=== PATIENT | female | born 1955 | race Hispanic/Latino ===

== ENCOUNTER 2017-01-22 07:03 | Inpatient (IN) | payer BC, OTHER ==
[2017-01-22 07:21] VITALS: BMI 34.7
--- NOTE | 2017-01-22 07:23 | ED PDOC ---
Arrival/HPI - General Chief Complaint: GI Problem Time Seen by Provider: 01/22/17 07:09 Historian: Patient, Spouse, Family - History of Present Illness Time/Duration: Other (2 days) Symptom Onset: Gradual Symptom Course: Unchanged Severity Level: Mild Activities at Onset: Rest Associated Symptoms (Text): 01/22/17 07:21 Generalized weakness and fatigue along with myalgias but no arthralgias. Urinary frequency but no urgency dysuria or hematuria. Nausea and vomiting yesterday. No diarrhea. No abdominal pain. No cough congestion dyspnea or URI. No chest pain. No headache dizziness or lightheadedness. Patient's blood sugar was 220 this morning. She did take her insulin. She ate a banana and some Gatorade. No travel or exposure. She had some chills and some sweating, but no fever. Past Medical History - Infectious Disease Hx of Infectious Diseases: None - Tetanus Immunization Tetanus Immunization: Unknown - Reproductive Menopause: Yes - Cardiac Hx Hypertension: Yes - Pulmonary Hx Respiratory Disorders: No - Endocrine/Metabolic Hx Diabetes Mellitus Type 2: Yes - Hematological/Oncological Hx Blood Disorders: No Hx Blood Transfusions: No Hx Blood Transfusion Reaction: No - Integumentary Hx Dermatological Disorder: No - Musculoskeletal/Rheumatological Hx Musculoskeletal Disorders: Yes - Gastrointestinal Hx Gastrointestinal Disorders: No - Psychiatric Hx Emotional Abuse: No Hx Physical Abuse: No Hx Substance Use: No - Surgical History Hx Cholecystectomy: Yes - Anesthesia Hx Anesthesia Reactions: No - Suicidal Assessment Feels Threatened In Home Enviroment: No Family/Social History - Physician Review Nursing Documentation Reviewed: Yes Family/Social History: Unknown Family HX Smoking Status: Never Smoked Hx Alcohol Use: No Hx Substance Use: No Hx Substance Use Treatment: No Allergies/Home Meds Allergies/Adverse Reactions: Allergies shellfish derived Adverse Reaction (Verified 01/22/17 07:20) RASH Home Medications: Home Meds Medication Instructions Recorded Confirmed Glipizide/Metformin Hydrochl 500 tab PO BID 06/08/12 01/22/17 [Glipizide/Metformin Hydrochloride 5 mg-500 mg] Ursodiol [Ursodiol] 500 mg PO QPM 06/08/12 01/22/17 Atorvastatin [Lipitor] 20 mg PO ONCE 01/22/17 01/22/17 Empagliflozin [Jardiance] 25 mg PO ONCE 01/22/17 01/22/17 Insulin Glargine/Lixisenatide 60 units SQ ONCE 01/22/17 01/22/17 [Soliqua 100 Unit-33 Mcg/ml Pen] Valsartan/Hydrochlorothiazide 80 mg PO ONCE 01/22/17 01/22/17 [Valsartan-Hctz 80-12.5 mg Tab] Review of Systems - Physician Review All systems were reviewed & negative as marked: Yes - Review of Systems Constitutional: Fatigue. absent: Fevers Respiratory: absent: SOB, Cough, Sputum, Wheezing Cardiovascular: absent: Chest Pain, Palpitations, Syncope Gastrointestinal: Nausea, Vomiting. absent: Abdominal Pain, Constipation, Diarrhea, Anorexia Genitourinary Female: Frequency. absent: Dysuria, Hematuria, Urine Output Changes Musculoskeletal: Myalgias. absent: Arthralgias, Back Pain, Neck Pain, Joint Swelling Skin: absent: Rash Neurological: absent: Headache, Dizziness, Focal Weakness Physical Exam Vital Signs Temp Pulse Resp BP Pulse Ox 01/22/17 08:57 86 18 111/45 L 94 L 01/22/17 08:53 99.5 F 88 17 111/45 L 96 01/22/17 07:25 98.1 F 67 17 98/66 L 98 Temperature: Afebrile Blood Pressure: Normal Pulse: Regular Respiratory Rate: Normal Appearance: Positive for: Well-Appearing, Non-Toxic, Uncomfortable Pain Distress: None Mental Status: Positive for: Alert and Oriented X 3 - Systems Exam Head: Present: Atraumatic, Normocephalic Pupils: Present: PERRL Extroacular Muscles: Present: EOMI Conjunctiva: Present: Normal Ears: Present: NORMAL TM, Normal Canal. No: Erythema, TM Bulging Mouth: Present: Moist Mucous Membranes Pharnyx: No: ERYTHEMA, EXUDATE, TONSILS ENLARGED Neck: Present: Normal Range of Motion. No: Meningeal Signs, Paraspinal Tenderness Respiratory/Chest: Present: Clear to Auscultation, Good Air Exchange. No: Respiratory Distress, Accessory Muscle Use Cardiovascular: Present: Regular Rate and Rhythm, Normal S1, S2, Tachycardic. No: Murmurs Abdomen: Present: Normal Bowel Sounds, Other (cholecystectomy). No: Tenderness , Distention, Peritoneal Signs, Rebound, Guarding Back: Present: Normal Inspection. No: CVA Tenderness Upper Extremity: Present: Normal Inspection. No: Cyanosis, Edema Lower Extremity: Present: Normal Inspection. No: Edema Neurological: Present: GCS=15, CN II-XII Intact, Speech Normal, Motor Func Grossly Intact Skin: Present: Warm, Dry, Normal Color. No: Rashes Psychiatric: Present: Alert, Oriented x 3, Normal Insight, Normal Concentration Medical Decision Making ED Course and Treatment: 01/22/17 07:40 EKG shows sinus tachycardia rate approximately [address] or T-wave changes - Lab Interpretations Lab Results: 01/22/17 07:35 01/22/17 07:35 Lab Results 01/22/17 07:35: Sodium 139, Potassium 3.5 L, Chloride 101, Carbon Dioxide 22, Anion Gap 20, BUN 24 H, Creatinine 0.9, Est GFR ( Amer) > 60, Est GFR ( Non-Af Amer) > 60, Random Glucose 206 H, Calcium 9.6, Total Bilirubin 1.1, AST 44 H, ALT 44, Alkaline Phosphatase 87, Lactate Dehydrogenase 515, Total Creatine Kinase 109, Troponin I 0.02, Total Protein 7.2, Albumin 4.4, Globulin 2.9, Albumin/Globulin Ratio 1.5, Lipase 162 01/22/17 07:35: WBC 17.8 H, RBC 4.02, Hgb 12.1, Hct 35.1 L, MCV 87.3, MCH 30.1, MCHC 34.5, RDW 12.7, Plt Count 167, MPV 10.0, Gran % 93.9 H, Lymph % (Auto) 2.7 L, [place] % (Auto) 3.3, Eos % (Auto) 0.0 L, Baso % (Auto) 0.1, Gran # 16.67 H, Lymph # 0.5 L, [place] # 0.6, Eos # 0.0, Baso # 0.01, Neutrophils % (Manual) 86 H, Band Neutrophils % 8 H, Lymphocytes % (Manual) 2 L, Monocytes % (Manual) 4 01/22/17 07:16: POC Glucose (mg/dL) 211 H - RAD Interpretation Radiology Orders: 01/22/17 07:28 CHEST PORTABLE [RAD] Stat Chest 1 view shows no infiltrate effusion or cardiomegaly. There is poor inspiratory effort and bilateral increased perihilar markings. Vice President Of Instruction: ED Physician - Medication Orders Current Medication Orders: Atorvastatin Calcium (Lipitor) 20 mg PO HS SAE Hydrochlorothiazide (Microzide) 12.5 mg PO DAILY SAE Sodium Chloride (Sodium Chloride 0.9%) 1,000 mls @ 500 mls/hr IV ONCE ONE Stop: 01/22/17 09:27 Last Admin: 01/22/17 07:43 Dose: 500 mls/hr eMAR Start Stop Document 01/22/17 07:43 IT (Rec: 01/22/17 07:43 [id number] Intravenous Solution Start Date 01/22/17 Start Time 07:43 End Date 01/22/17 End time 09:43 Total Infusion Time 120 Sodium Chloride (Sodium Chloride 0.9%) 1,000 mls @ 500 mls/hr IV ONCE ONE Stop: 01/22/17 10:11 Last Admin: 01/22/17 08:34 Dose: 500 mls/hr eMAR Start Stop Document 01/22/17 08:34 IT (Rec: 01/22/17 08:34 IT [id number] Intravenous Solution Start Date 01/22/17 Start Time 08:34 End Date 01/22/17 End time 10:34 Total Infusion Time 120 Sodium Chloride (Sodium Chloride 0.9%) 1,000 mls @ 100 mls/hr IV .Q10H SAE Insulin Human Regular (Humulin R High) 0 units SC ACHS SAE PRN Reason: Protocol Discontinued Medications Ondansetron HCl (Zofran Inj) 4 mg IVP STAT STA Stop: 01/22/17 07:28 Last Admin: 01/22/17 07:40 Dose: 4 mg IVP Administration Document 01/22/17 07:40 IT (Rec: 01/22/17 07:43 IT [id number] Charges for Administration # of IVP Administrations 1 Disposition/Present on Arrival - Present on Arrival Any Indicators Present on Arrival: No History of DVT/PE: No History of Uncontrolled Diabetes: No Urinary Catheter: No History of Decub. Ulcer: No History Surgical Site Infection Following: None - Disposition Have Diagnosis and Disposition been Completed?: Yes Diagnosis: Hyperglycemia, Leukocytosis, Tachycardia, Hypotension, Nausea & vomiting Disposition: HOSPITALIZED Disposition Time: 09:14 Patient Plan: Observation Condition: IMPROVED Forms: [employer] (E[place]ian)
[2017-01-22] MEDS ORDERED: Sodium Chloride 0.9% 1,000 ML IV ONE ×2 (07:28→08:12)
[2017-01-22 07:52] LABS: BASO # 0.01 K/mm3 (0.0-2.0); BASO % 0.1 % (0.0-3.0); GRAN # 16.67 (1.4-6.5); GRAN % 93.9 % (50.0-68.0); HEMATOCRIT 35.1 % (36.0-48.0); LYMPH # 0.5 (1.2-3.4); LYMPH % 2.7 % (22.0-35.0); MEAN CELL VOLUME 87.3 fl (80.0-105.0); MEAN CORPUSCULAR HEMOGLOBIN 30.1 pg (25.0-35.0); MEAN CORPUSCULAR HGB CONC 34.5 g/dl (31.0-37.0); MONO # 0.6 (0.1-0.6); MONO % 3.3 % (1.0-6.0); PLATELET COUNT 167 10^3/uL (120.0-450.0); RED CELL DISTRIBUTION WIDTH 12.7 % (11.5-14.5); WHITE BLOOD COUNT 17.8 10^3/ul (4.5-11.0)
[2017-01-22 07:59] LABS: ALB/GLOB RATIO 1.5 (1.1-1.8); ALKALINE PHOSPHATASE 87 U/L (38-126); ALT/SGPT 44 U/L (7-56); AST/SGOT 44 U/L (14-36); BILIRUBIN,TOTAL 1.1 mg/dL (0.2-1.3); BLOOD UREA NITROGEN 24 mg/dL (7-21); CALCIUM 9.6 mg/dL (8.4-10.5); CARBON DIOXIDE 22 mmol/L (21-33); CHLORIDE 101 mmol/L (98-107); GFR AFRICAN-AMERICAN > 60; GLUCOSE,RANDOM 206 mg/dL (70-110); LIPASE 162 U/L (23-300); POTASSIUM 3.5 mmol/L (3.6-5.0); SODIUM 139 mmol/L (132-148); TOTAL PROTEIN 7.2 g/dL (5.8-8.3)
[2017-01-22 08:09] LABS: TROPONIN I 0.02 ng/mL
[2017-01-22 08:44] LABS: NEUTROPHIL 86 % (50.0-70.0)
[2017-01-22 08:45] LABS: BAND 8 % (0-2)
[2017-01-22] MEDS ORDERED: Sodium Chloride 0.9% 1,000 ML IV SCH (09:00)
[2017-01-22 09:43] LABS: URINE BILIRUBIN NEGATIVE (NEGATIVE); URINE BLOOD NEGATIVE (NEGATIVE); URINE GLUCOSE (UA) >=1000 mg/dL (NEGATIVE); URINE KETONE TRACE mg/dL (NEGATIVE); URINE LEUKOCYTE ESTERASE NEGATIVE Leu/uL (NEGATIVE); URINE PROTEIN NEGATIVE mg/dL (<30 mg/dL); URINE UROBILINOGEN 0.2 E.U./dL (<1 E.U./dL)
[2017-01-22 09:44] LABS: URINE APPEARANCE CLEAR (CLEAR); URINE COLOR YELLOW (YELLOW)
[2017-01-22] MEDS ORDERED: Vancomycin 1gm in NS 250ml 1 GM/250 ML BAG IVPB STA (09:55)
--- NOTE | 2017-01-22 11:06 | RAD ---
HISTORY: Weakness. Technique: Single view portable semi erect @ 07:57. COMPARISON: 09/13/2012 FINDINGS: LUNGS: No active pulmonary disease. PLEURA: No significant pleural effusion identified, no pneumothorax apparent. CARDIOVASCULAR: No radiographic findings to suggest acute or significant cardiovascular disease. OSSEOUS STRUCTURES: No significant abnormalities. VISUALIZED UPPER ABDOMEN: Normal. OTHER FINDINGS: None. IMPRESSION: No active disease. No acute/significant interval changes. Concordant results with the preliminary interpretation rendered by the emergency department physician procedure.
[2017-01-22] MEDS: Insulin Reg-HIGH-Coverage SC SCH ×3 (12:24→22:25)
[2017-01-22] MEDS: cefTRIAXone 1 gm 1 GM/100 ML BAG IVPB SCH (12:35)
--- NOTE | 2017-01-22 17:25 | CP.PCM.CON ---
History of Present Illness - History of Present Illness History of Present Illness: 61 year old female with PMH of DM, HTN, obesity with BMI 35 came in to [facility] complaining of generalized weakness and fatigue for the past 3-4 days, with nausea, vomiting and an episode of loose bowel movement. She has also been having muscle aches particularly in the lower extremities. She has increased urination but no burning sensation on urination. She denies sore throat, no cough, no SOB, no chest pain, no headache or dizziness, no rhinorrhea. She does not have flank or back pain. Infectious Diseases consult is requested to further evaluate and manage. Review of Systems - Review of Systems All systems: reviewed and no additional remarkable complaints except (as per hPI ) Past Patient History - Infectious Disease Hx of Infectious Diseases: None - Tetanus Immunizations Tetanus Immunization: Unknown - Past Social History Smoking Status: Never Smoked - CARDIAC Hx Hypertension: Yes - PULMONARY Hx Respiratory Disorders: No - ENDOCRINE/METABOLIC Hx Diabetes Mellitus Type 2: Yes - HEMATOLOGICAL/ONCOLOGICAL Hx Blood Disorders: No Hx Blood Transfusions: No Hx Blood Transfusion Reaction: No - INTEGUMENTARY Hx Dermatological Problems: No - MUSCULOSKELETAL/RHEUMATOLOGICAL Hx Musculoskeletal Disorders: Yes - GASTROINTESTINAL Hx Gastrointestinal Disorders: No - PSYCHIATRIC Hx Emotional Abuse: No Hx Physical Abuse: No Hx Substance Use: No - SURGICAL HISTORY Hx Cholecystectomy: Yes - ANESTHESIA Hx Anesthesia Reactions: No Meds Allergies/Adverse Reactions: Allergies Allergy/AdvReac Type Severity Reaction Status Date / Time shellfish derived AdvReac RASH Verified 01/22/17 07:20 - Medications Medications: Current Medications Atorvastatin Calcium (Lipitor) 20 mg PO HS SAE Hydrochlorothiazide (Microzide) 12.5 mg PO DAILY SAE Sodium Chloride (Sodium Chloride 0.9%) 1,000 mls @ 500 mls/hr IV ONCE ONE Stop: 01/22/17 10:11 Last Admin: 01/22/17 08:34 Dose: 500 mls/hr Sodium Chloride (Sodium Chloride 0.9%) 1,000 mls @ 100 mls/hr IV .Q10H SAE Last Admin: 01/22/17 09:21 Dose: 100 mls/hr Insulin Human Regular (Humulin R High) 0 units SC ACHS SAE PRN Reason: Protocol Physical Exam - Constitutional Appears: Non-toxic, No Acute Distress - Head Exam Head Exam: NORMAL INSPECTION - ENT Exam ENT Exam: Mucous Membranes Moist - Neck Exam Neck exam: Negative for: Meningismus - Respiratory Exam Respiratory Exam: Decreased Breath Sounds - Cardiovascular Exam Cardiovascular Exam: +S1, +S2 - GI/Abdominal Exam GI & Abdominal Exam: Soft. absent: Tenderness Results - Vital Signs Recent Vital Signs: Last Vital Signs Temp 99.2 F 01/22/17 09:39 Pulse 87 01/22/17 09:39 Resp 17 01/22/17 09:39 BP 106/50 L 01/22/17 09:39 Pulse Ox 96 01/22/17 09:39 - Labs Result Diagrams: 01/22/17 07:35 01/22/17 07:35 Assessment & Plan - Assessment and Plan (Free Text) Plan: Assessment Systemic Inflammatory Response Syndrome, R/O sepsis, R/O systemic viral illness , R/O acute gastroenteritis DM HTN obesity with BMI 35 Plan Started patient on Rocephin and gave a dose of IV Vancomycin pending blood cx, urine cx, rapid Influenza test will monitor clinically
--- NOTE | 2017-01-22 19:37 | CARD ---
APPROVED REPORT EKG Measurement Heart [id number] <Conclusion> Sinus tachycardia Otherwise normal ECG
[2017-01-22] MEDS ORDERED: Sodium Chloride 0.9% 500 ML IV STA (20:15)
[2017-01-23] MEDS: Meropenem 1g/NS 100mL IVPB 1 GM/100 ML PIGGYBACK IVPB SCH ×3 (02:09→21:07)
[2017-01-23] MEDS ORDERED: Sodium Chloride 0.9% 500 ML IV STA ×2 (04:43→06:10)
--- NOTE | 2017-01-23 04:43 | CP.PCM.PN ---
Subjective - Date & Time of Evaluation Date of Evaluation: 01/23/17 Time of Evaluation: 04:42 - Subjective Subjective: Seen at bedside for low blood pressure. BP 80/46, 76/min, 98.6*F. It was 98/55 earlier for which she received a normal saline bolus of 500 CC. Has no complaints. Denies chest pain,sob,nausea,palpitations,sweating. Denies hematemesis, hematchezia. Medical record was reviewed. This 61 year old white woman was admitted with generalized weakness, fatigue, myalgia,urinary frequency, nausea, vomitng, hypotension, leukocytosis, hypokalemia. Has PMH of HTN, DM II, obesity, cholecystectomy. Objective - Vital Signs/Intake and Output Vital Signs (last 24 hours): Temp Pulse Resp BP Pulse Ox 101 F H 89 20 100/58 L 93 L 01/22/17 22:00 01/22/17 19:54 01/22/17 19:54 01/22/17 22:00 01/22/17 19:54 Intake and Output: 01/22/17 01/23/17 18:59 06:59 Intake Total 540 Balance 540 - Medications Medications: Current Medications Acetaminophen (Tylenol 325mg Tab) 650 mg PO Q4H PRN PRN Reason: Fever >100.4 F Last Admin: 01/22/17 20:19 Dose: 650 mg Atorvastatin Calcium (Lipitor) 20 mg PO HS [facility] Last Admin: 01/22/17 21:26 Dose: 20 mg Hydrochlorothiazide (Microzide) 12.5 mg PO DAILY [facility] Last Admin: 01/22/17 12:44 Dose: Not Given Sodium Chloride (Sodium Chloride 0.9%) 1,000 mls @ 100 mls/hr IV .Q10H SAE Last Admin: 01/22/17 09:21 Dose: 100 mls/hr Ceftriaxone Sodium (Rocephin 1 Gram Ivpb) 1 gm in 100 mls @ 100 mls/hr IVPB DAILY SAE PRN Reason: Protocol Last Admin: 01/22/17 12:35 Dose: 100 mls/hr Insulin Human Regular (Humulin R High) 0 units SC ACHS SAE PRN Reason: Protocol Last Admin: 01/22/17 22:25 Dose: Not Given - Labs Labs: Most Recent Lab Values WBC 17.8 10^3/ul (4.5-11.0) H 01/22/17 07:35 RBC 4.02 10^6/uL (3.5-6.1) 01/22/17 07:35 Hgb 12.1 g/dL (12.0-16.0) 01/22/17 07:35 Hct 35.1 % (36.0-48.0) L 01/22/17 07:35 MCV 87.3 fl (80.0-105.0) 01/22/17 07:35 MCH 30.1 pg (25.0-35.0) 01/22/17 07:35 MCHC 34.5 g/dl (31.0-37.0) 01/22/17 07:35 RDW 12.7 % (11.5-14.5) 01/22/17 07:35 Plt Count 167 10^3/uL (120.0-450.0) 01/22/17 07:35 MPV 10.0 fl (7.0-11.0) 01/22/17 07:35 Gran % 93.9 % (50.0-68.0) H 01/22/17 07:35 Lymph % (Auto) 2.7 % (22.0-35.0) L 01/22/17 07:35 [place] % (Auto) 3.3 % (1.0-6.0) 01/22/17 07:35 Eos % (Auto) 0.0 % (1.5-5.0) L 01/22/17 07:35 Baso % (Auto) 0.1 % (0.0-3.0) 01/22/17 07:35 Gran # 16.67 (1.4-6.5) H 01/22/17 07:35 Lymph # 0.5 (1.2-3.4) L 01/22/17 07:35 [place] # 0.6 (0.1-0.6) 01/22/17 07:35 Eos # 0.0 (0.0-0.7) 01/22/17 07:35 Baso # 0.01 K/mm3 (0.0-2.0) 01/22/17 07:35 Neutrophils % (Manual) 86 % (50.0-70.0) H 01/22/17 07:35 Band Neutrophils % 8 % (0-2) H 01/22/17 07:35 Lymphocytes % (Manual) 2 % (22.0-35.0) L 01/22/17 07:35 Monocytes % (Manual) 4 % (1.0-6.0) 01/22/17 07:35 Sodium 139 mmol/L (132-148) 01/22/17 07:35 Potassium 3.5 mmol/L (3.6-5.0) L 01/22/17 07:35 Chloride 101 mmol/L (98-107) 01/22/17 07:35 Carbon Dioxide 22 mmol/L (21-33) 01/22/17 07:35 Anion Gap 20 (10-20) 01/22/17 07:35 BUN 24 mg/dL (7-21) H 01/22/17 07:35 Creatinine 0.9 mg/dL (0.7-1.2) 01/22/17 07:35 Est GFR ( Amer) > 60 01/22/17 07:35 Est GFR (Non-Af Amer) > 60 01/22/17 07:35 POC Glucose (mg/dL) 153 mg/dL (65-110) H 01/22/17 20:53 Random Glucose 206 mg/dL (70-110) H 01/22/17 07:35 Calcium 9.6 mg/dL (8.4-10.5) 01/22/17 07:35 Total Bilirubin 1.1 mg/dL (0.2-1.3) 01/22/17 07:35 AST 44 U/L (14-36) H 01/22/17 07:35 ALT 44 U/L (7-56) 01/22/17 07:35 Alkaline Phosphatase 87 U/L (38-126) 01/22/17 07:35 Lactate Dehydrogenase 515 U/L (333-699) 01/22/17 07:35 Total Creatine Kinase 109 U/L (35-230) 01/22/17 07:35 Troponin I 0.02 ng/mL 01/22/17 07:35 Total Protein 7.2 g/dL (5.8-8.3) 01/22/17 07:35 Albumin 4.4 g/dL (3.0-4.8) 01/22/17 07:35 Globulin 2.9 gm/dL 01/22/17 07:35 Albumin/Globulin Ratio 1.5 (1.1-1.8) 01/22/17 07:35 Lipase 162 U/L (23-300) 01/22/17 07:35 Procalcitonin 8.06 NG/ML (0.19-0.49) H 01/22/17 09:52 Urine Color Yellow (YELLOW) 01/22/17 08:30 Urine Appearance Clear (CLEAR) 01/22/17 08:30 Urine pH 6.0 (4.7-8.0) 01/22/17 08:30 Ur Specific [place] 1.010 (1.005-1.035) 01/22/17 08:30 Urine Protein Negative mg/dL (<30 mg/dL) 01/22/17 08:30 Urine Glucose (UA) >=1000 mg/dL (NEGATIVE) 01/22/17 08:30 Urine Ketones Trace mg/dL (NEGATIVE) H 01/22/17 08:30 Urine Blood Negative (NEGATIVE) 01/22/17 08:30 Urine Nitrate Negative (NEGATIVE) 01/22/17 08:30 Urine Bilirubin Negative (NEGATIVE) 01/22/17 08:30 Urine Urobilinogen 0.2 E.U./dL (<1 E.U./dL) 01/22/17 08:30 Ur Leukocyte Esterase Negative Brenda/uL (NEGATIVE) 01/22/17 08:30 Influenza Typ A,B (EIA) Negative for flu a/b (NEGATIVE) 01/22/17 17:35 - Constitutional Appears: Well, No Acute Distress - Head Exam Head Exam: ATRAUMATIC, NORMAL INSPECTION, NORMOCEPHALIC - Eye Exam Eye Exam: Normal appearance - ENT Exam ENT Exam: Mucous Membranes Dry - Neck Exam Neck Exam: Normal Inspection - Respiratory Exam Respiratory Exam: NORMAL BREATHING PATTERN - Cardiovascular Exam Cardiovascular Exam: absent: JVD - GI/Abdominal Exam GI & Abdominal Exam: absent: Distended - Rectal Exam Rectal Exam: Deferred - Exam Additional comments: Deferred. - Extremities Exam Extremities Exam: Normal Inspection - Back Exam Back Exam: NORMAL INSPECTION - Neurological Exam Neurological Exam: Alert, Oriented x3 - Psychiatric Exam Psychiatric exam: Normal Affect, Normal Mood - Skin Skin Exam: Normal Color Assessment and Plan - Assessment and Plan (Free Text) Assessment: Hypotension. DM II. HTN. Obesity. Hypovolemia. Plan: CBC,CMP ,troponin,VBG. EKG. Normal saline bolus 500 CC. Hold antihypertensive. Continue present management.
[2017-01-23 06:23] LABS: VENOUS BLOOD GAS BASE EXCESS -2.8 mmol/L (0.0-2.0)
[2017-01-23 06:26] LABS: HEMATOCRIT 31.6 % (36.0-48.0); MEAN CELL VOLUME 88.8 fl (80.0-105.0); MEAN CORPUSCULAR HEMOGLOBIN 30.3 pg (25.0-35.0); MEAN CORPUSCULAR HGB CONC 34.2 g/dl (31.0-37.0); MEAN PLATELET VOLUME 10.3 fl (7.0-11.0); RED CELL DISTRIBUTION WIDTH 13.5 % (11.5-14.5); WHITE BLOOD COUNT 8.4 10^3/ul (4.5-11.0)
[2017-01-23 06:40] LABS: ALB/GLOB RATIO 1.3 (1.1-1.8); ALKALINE PHOSPHATASE 60 U/L (38-126); ALT/SGPT 61 U/L (7-56); AST/SGOT 90 U/L (14-36); BILIRUBIN,TOTAL 1.2 mg/dL (0.2-1.3); BLOOD UREA NITROGEN 26 mg/dL (7-21); CALCIUM 8.1 mg/dL (8.4-10.5); CARBON DIOXIDE 22 mmol/L (21-33); CHLORIDE 105 mmol/L (98-107); GFR AFRICAN-AMERICAN > 60; GLUCOSE,RANDOM 123 mg/dL (70-110); POTASSIUM 3.4 mmol/L (3.6-5.0); SODIUM 139 mmol/L (132-148)
[2017-01-23 07:31] LABS: TROPONIN I 0.13 ng/mL
[2017-01-23] MEDS: Insulin Reg-HIGH-Coverage SC SCH ×4 (07:42→22:45)
[2017-01-23] MEDS ORDERED: Sodium Chloride 0.9% 500 ML IV SCH (08:13)
[2017-01-23] MEDS ORDERED: [UNRECOGNIZED DRUG - OTHER] SQ SCH ×5 (09:00→11:15)
[2017-01-23] MEDS ORDERED: Barium Sulfate Susp 2.1% w/v, 2.0% w/w 450 mL Bottle PO ONE (09:18)
--- NOTE | 2017-01-23 10:27 | CP.PCM.HP ---
<Stephy Bentley - Last Filed: 01/23/17 13:00> History of Present Illness - History of Present Illness History of Present Illness: PGY-2 H&P for Dr[address] Martinez 61 yo female with PMH of HTN, DM presents to ED with generalized weakness, fatigue and chills. Patient states her symptoms began on Monday. She states that she checked blood sugar and it was in the 220, she took her insulin. She reports myalgias, nausea and vomiting. She also reported 1 episode on loose bowel movement which has resolved. She denies fever, abdominal pain, cough, congestion, dyspnea or URI, chest pain, No headache dizziness or lightheadedness. Overnight patient BP dropped into the 80s, she was given 500cc bolus. Patient also reports callus on right foot, for which she has been seeing podiatry outpatient. 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 absent: Fever, Headache - EENT Eyes: absent: Change in Vision Nose/Mouth/Throat: absent: Nasal Congestion, Nasal Discharge, Sore Throat - Cardiovascular Cardiovascular: absent: Chest Pain, Dyspnea, Leg Edema, Palpitations - Respiratory Respiratory: absent: Cough, Dyspnea - Gastrointestinal Gastrointestinal: Diarrhea, Nausea, Vomiting. absent: Abdominal Pain, Constipation - Genitourinary Genitourinary: absent: Dysuria, Hematuria - Musculoskeletal Musculoskeletal: Myalgias. absent: Numbness, Tingling - Integumentary Integumentary: Skin Ulcer. absent: Pruritus, Rash, Jaundice - Neurological Neurological: absent: Dizziness, Numbness, Headaches, Syncope - Hematologic/Lymphatic Hematologic: absent: Easy Bleeding, Easy Bruising Past Patient History - Infectious Disease Hx of Infectious Diseases: None - Tetanus Immunizations Tetanus Immunization: Unknown - Past Social History Smoking Status: Never Smoked - CARDIAC Hx Hypertension: Yes - PULMONARY Hx Respiratory Disorders: No - ENDOCRINE/METABOLIC Hx Diabetes Mellitus Type 2: Yes - HEMATOLOGICAL/ONCOLOGICAL Hx Blood Disorders: No Hx Blood Transfusions: No Hx Blood Transfusion Reaction: No - INTEGUMENTARY Hx Dermatological Problems: No - MUSCULOSKELETAL/RHEUMATOLOGICAL Hx Musculoskeletal Disorders: Yes - GASTROINTESTINAL Hx Gastrointestinal Disorders: No - PSYCHIATRIC Hx Emotional Abuse: No Hx Physical Abuse: No Hx Substance Use: No - SURGICAL HISTORY Hx Cholecystectomy: Yes - ANESTHESIA Hx Anesthesia Reactions: No Meds Allergies/Adverse Reactions: Allergies Allergy/AdvReac Type Severity Reaction Status Date / Time shellfish derived AdvReac RASH Verified 01/22/17 07:20 Physical Exam - Constitutional Appears: Well, No Acute Distress - Head Exam Head Exam: ATRAUMATIC, NORMAL INSPECTION, NORMOCEPHALIC - Eye Exam Eye Exam: EOMI, Normal appearance - ENT Exam ENT Exam: Mucous Membranes Moist - Respiratory Exam Respiratory Exam: Clear to Auscultation Bilateral, NORMAL BREATHING PATTERN. absent: Rales, Rhonchi, Wheezes, Respiratory Distress - Cardiovascular Exam Cardiovascular Exam: REGULAR RHYTHM, +S1, +S2. absent: Tachycardia, Systolic Murmur - GI/Abdominal Exam GI & Abdominal Exam: Normal Bowel Sounds, Soft. absent: Distended, Firm, Guarding, Tenderness - Extremities Exam Additional comments: right foot ulcer - Neurological Exam Neurological exam: Alert, Oriented x3 - Skin Skin Exam: Dry, Intact, Normal Color, Warm Results - Vital Signs Recent Vital Signs: Last Vital Signs Temp 98.3 F 01/23/17 07:30 Pulse 56 L 01/23/17 07:30 Resp 20 01/23/17 07:30 BP 90/47 L 01/23/17 07:30 Pulse Ox 100 01/23/17 07:30 - Labs Result Diagrams: 01/23/17 06:00 01/23/17 06:00 Labs: Laboratory Results - last 24 hr 01/22/17 01/22/17 01/22/17 09:52 11:50 16:08 WBC RBC Hgb Hct MCV MCH MCHC RDW Plt Count MPV pO2 VBG pH VBG pCO2 VBG HCO3 VBG Total CO2 VBG O2 Sat (Calc) VBG Base Excess VBG Potassium Sodium Chloride Glucose Lactate FiO2 Potassium Carbon Dioxide Anion Gap BUN Creatinine Est GFR ( Amer) Est GFR (Non-Af Amer) POC Glucose (mg/dL) 283 H 206 H Random Glucose Calcium Total Bilirubin AST ALT Alkaline Phosphatase Troponin I Total Protein Albumin Globulin Albumin/Globulin Ratio Procalcitonin 8.06 H Venous Blood Potassium Influenza Typ A,B (EIA) 01/22/17 01/22/17 01/23/17 17:35 20:53 05:26 WBC RBC Hgb Hct MCV MCH MCHC RDW Plt Count MPV pO2 43 VBG pH 7.30 L VBG pCO2 49.0 VBG HCO3 24.1 VBG Total CO2 25.6 VBG O2 Sat (Calc) 82.7 H VBG Base Excess -2.8 L VBG Potassium 3.3 L Sodium 137.0 Chloride 106.0 Glucose 128 H Lactate 1.4 FiO2 21.0 Potassium Carbon Dioxide Anion Gap BUN Creatinine Est GFR ( Amer) Est GFR (Non-Af Amer) POC Glucose (mg/dL) 153 H Random Glucose Calcium Total Bilirubin AST ALT Alkaline Phosphatase Troponin I Total Protein Albumin Globulin Albumin/Globulin Ratio Procalcitonin Venous Blood Potassium 3.3 L Influenza Typ A,B (EIA) Negative for flu a/b 01/23/17 01/23/17 01/23/17 06:00 06:00 07:34 WBC 8.4 D RBC 3.56 Hgb 10.8 L Hct 31.6 L MCV 88.8 MCH 30.3 MCHC 34.2 RDW 13.5 Plt Count 127 MPV 10.3 pO2 VBG pH VBG pCO2 VBG HCO3 VBG Total CO2 VBG O2 Sat (Calc) VBG Base Excess VBG Potassium Sodium 139 Chloride 105 Glucose Lactate FiO2 Potassium 3.4 L Carbon Dioxide 22 Anion Gap 15 BUN 26 H Creatinine 1.0 Est GFR ( Amer) > 60 Est GFR (Non-Af Amer) 56 POC Glucose (mg/dL) 132 H Random Glucose 123 H Calcium 8.1 L Total Bilirubin 1.2 AST 90 H D ALT 61 H Alkaline Phosphatase 60 Troponin I 0.13 H* D Total Protein 6.0 Albumin 3.5 Globulin 2.6 Albumin/Globulin Ratio 1.3 Procalcitonin Venous Blood Potassium Influenza Typ A,B (EIA) Assessment & Plan - Assessment and Plan (Free Text) Assessment: 61 yo female with PMH of HTN, DM presents to ED with severe sepsis 2/2 to possible foot ulcer Plan: 1. severe sepsis with hypotension - 2/2 bactremia - flu negative - procalcitonin elevated - podiatry preformed bedside I&D - patient received vanco in ED - cont ceftriaxone and doxy - cont IVF, received multiple liters in ED - foot Xray - blood culture gram negative tatum - abd pelvis CT to R/O intraabdominal infection - ID and podiatry are following 2. elevated troponins - repeat trops were elevated at 0.13 - trend trops - cont Lipitor and ASA - hold HTN meds including b blockers due to hypotension - echo ordered - consult cardiology 3. DM - cont iss - cont insulin glarine - fingersticks ACHS 4. HTN - currently hypotensive - hold BP meds <Peter Martinez S - Last Filed: 01/23/17 14:48> Results - Vital Signs Recent Vital Signs: Last Vital Signs Temp 98.3 F 01/23/17 07:30 Pulse 85 01/23/17 10:20 Resp 20 01/23/17 07:30 BP 101/49 L 01/23/17 13:00 Pulse Ox 100 01/23/17 07:30 - Labs Result Diagrams: 01/23/17 06:00 01/23/17 06:00 Labs: Laboratory Results - last 24 hr 01/22/17 01/22/17 01/22/17 09:52 16:08 17:35 WBC RBC Hgb Hct MCV MCH MCHC RDW Plt Count MPV pO2 VBG pH VBG pCO2 VBG HCO3 VBG Total CO2 VBG O2 Sat (Calc) VBG Base Excess VBG Potassium Sodium Chloride Glucose Lactate FiO2 Potassium Carbon Dioxide Anion Gap BUN Creatinine Est GFR ( Amer) Est GFR (Non-Af Amer) POC Glucose (mg/dL) 206 H Random Glucose Calcium Total Bilirubin AST ALT Alkaline Phosphatase Troponin I Total Protein Albumin Globulin Albumin/Globulin Ratio Procalcitonin 8.06 H Venous Blood Potassium Influenza Typ A,B (EIA) Negative for flu a/b 01/22/17 01/23/17 01/23/17 20:53 05:26 06:00 WBC 8.4 D RBC 3.56 Hgb 10.8 L Hct 31.6 L MCV 88.8 MCH 30.3 MCHC 34.2 RDW 13.5 Plt Count 127 MPV 10.3 pO2 43 VBG pH 7.30 L VBG pCO2 49.0 VBG HCO3 24.1 VBG Total CO2 25.6 VBG O2 Sat (Calc) 82.7 H VBG Base Excess -2.8 L VBG Potassium 3.3 L Sodium 137.0 Chloride 106.0 Glucose 128 H Lactate 1.4 FiO2 21.0 Potassium Carbon Dioxide Anion Gap BUN Creatinine Est GFR ( Amer) Est GFR (Non-Af Amer) POC Glucose (mg/dL) 153 H Random Glucose Calcium Total Bilirubin AST ALT Alkaline Phosphatase Troponin I Total Protein Albumin Globulin Albumin/Globulin Ratio Procalcitonin Venous Blood Potassium 3.3 L Influenza Typ A,B (EIA) 01/23/17 01/23/17 01/23/17 06:00 07:34 11:22 WBC RBC Hgb Hct MCV MCH MCHC RDW Plt Count MPV pO2 VBG pH VBG pCO2 VBG HCO3 VBG Total CO2 VBG O2 Sat (Calc) VBG Base Excess VBG Potassium Sodium 139 Chloride 105 Glucose Lactate FiO2 Potassium 3.4 L Carbon Dioxide 22 Anion Gap 15 BUN 26 H Creatinine 1.0 Est GFR ( Amer) > 60 Est GFR (Non-Af Amer) 56 POC Glucose (mg/dL) 132 H 218 H Random Glucose 123 H Calcium 8.1 L Total Bilirubin 1.2 AST 90 H D ALT 61 H Alkaline Phosphatase 60 Troponin I 0.13 H* D Total Protein 6.0 Albumin 3.5 Globulin 2.6 Albumin/Globulin Ratio 1.3 Procalcitonin Venous Blood Potassium Influenza Typ A,B (EIA) 01/23/17 12:00 WBC RBC Hgb Hct MCV MCH MCHC RDW Plt Count MPV pO2 VBG pH VBG pCO2 VBG HCO3 VBG Total CO2 VBG O2 Sat (Calc) VBG Base Excess VBG Potassium Sodium Chloride Glucose Lactate FiO2 Potassium Carbon Dioxide Anion Gap BUN Creatinine Est GFR ( Amer) Est GFR (Non-Af Amer) POC Glucose (mg/dL) Random Glucose Calcium Total Bilirubin AST ALT Alkaline Phosphatase Troponin I 0.09 D Total Protein Albumin Globulin Albumin/Globulin Ratio Procalcitonin Venous Blood Potassium Influenza Typ A,B (EIA) Assessment & Plan - Assessment and Plan (Free Text) Plan: Pt seen and examined by me. I reviewed the note of the biomedical instrument technician and agree with it. Labs and medications reviewed. Pt with severe sepsis secondary to abscess of L toe. Spoke to Dr Gutierrez and abscess was I and D'd. BCx positive. Hypotension improved with IVF. Trop improved. on ASA, unable to give beta blockers due to bradycardia. Echo ordered. Abd/Pelvic CT ordered. BP meds on hold due to hypotension. Eleveated procalcitonin romel. Spoke to at bedside.
--- NOTE | 2017-01-23 10:28 | CARD ---
APPROVED REPORT EXAM: Two-dimensional and M-mode echocardiogram with Doppler and color Doppler. INDICATION SEPSIS AND ELEVATED TROPONIN 2D DIMENSIONS Left Atrium (2D)3.6 (1.6-4.0cm)IVSd1.0 (0.7-1.1cm) LVDd4.2 (3.9-5.9cm)PWd1.0 (0.7-1.1cm) LVDs2.8 (2.5-4.0cm)FS (%) 33.4 % LVEF (%)62.5 (>50%) M-Mode DIMENSIONS Aortic Root3.10 (2.2-3.7cm)Aortic Cusp Exc.1.80 (1.5-2.0cm) Aortic Valve AoV Peak Tqoazvda757.0cm/Evaristo Peak GR.12mmHg Mitral Valve MV E Emfbgona550.0cm/sMV A Sfnlrzzw89.2cm/sE/A ratio1.3 TDI Lateral E' Peak V13.30cm/sMedial E' Peak V10.80cm/sE/Lateral E'9.0 E/Medial E'11.1 Pulmonary Valve PV Peak Crpiwfdp92.0cm/sPV Peak Grad.2mmHg Tricuspid Valve TR Peak Ymnzxhcb692hd/sRAP [id number] Peak Gr.32mmHg [id number] LEFT VENTRICLE The left ventricle is normal size. There is normal left ventricular wall thickness. The left ventricular function is normal. The left ventricular ejection fraction is within the normal range. There is normal LV segmental wall motion. The left ventricular diastolic function is normal. RIGHT VENTRICLE The right ventricle is normal size. There is normal right ventricular wall thickness. The right ventricular systolic function is normal. ATRIA The left atrium size is normal. The right atrium size is normal. AORTIC VALVE The aortic valve is not well visualized. No aortic regurgitation is present. There is no aortic valvular stenosis. MITRAL VALVE The mitral valve is normal in structure. There is no mitral valve regurgitation noted. TRICUSPID VALVE There is trace tricuspid regurgitation. There is mild pulmonary hypertension. GREAT VESSELS The aortic root is normal in size. The IVC is normal in size and collapses >50% with inspiration. PERICARDIAL EFFUSION There is no pericardial effusion. <Conclusion> The left ventricle is normal size. There is normal left ventricular wall thickness. The left ventricular function is normal. The left ventricular ejection fraction is within the normal range. There is normal LV segmental wall motion. The left ventricular diastolic function is normal. There is mild pulmonary hypertension.
[2017-01-23] MEDS: cefTRIAXone 1 gm 1 GM/100 ML BAG IVPB SCH (11:00)
--- NOTE | 2017-01-23 12:48 | CP.PCM.PN ---
Subjective - Date & Time of Evaluation Date of Evaluation: 01/23/17 Time of Evaluation: 11:25 - Subjective Subjective: Continued to have fever and chills last night, feels better today but still weak. Also still having occasional pain in the thighs (crampy pain). No diarrhea currently. Objective - Vital Signs/Intake and Output Vital Signs (last 24 hours): Temp Pulse Resp BP Pulse Ox 98.3 F 56 L 20 90/47 L 100 01/23/17 07:30 01/23/17 07:30 01/23/17 07:30 01/23/17 07:30 01/23/17 07:30 Intake and Output: 01/23/17 01/23/17 06:59 18:59 Intake Total 780 Balance 780 - Medications Medications: Current Medications Acetaminophen (Tylenol 325mg Tab) 650 mg PO Q4H PRN PRN Reason: Fever >100.4 F Last Admin: 01/23/17 05:27 Dose: 650 mg Aspirin (Ecotrin) 81 mg PO DAILY [facility] Atorvastatin Calcium (Lipitor) 20 mg PO HS [facility] Last Admin: 01/22/17 21:26 Dose: 20 mg Hydrochlorothiazide (Microzide) 12.5 mg PO DAILY [facility] Last Admin: 01/22/17 12:44 Dose: Not Given Ceftriaxone Sodium (Rocephin 1 Gram Ivpb) 1 gm in 100 mls @ 100 mls/hr IVPB DAILY [facility] PRN Reason: Protocol Last Admin: 01/22/17 12:35 Dose: 100 mls/hr Sodium Chloride (Sodium Chloride 0.9%) 500 mls @ 500 mls/hr IV .Q1H [facility] Last Admin: 01/23/17 08:18 Dose: 500 mls/hr Doxycycline Hyclate 100 mg/ (Sodium Chloride) 100 mls @ 100 mls/hr IVPB Q12 [facility] PRN Reason: Protocol Insulin Human Regular (Humulin R High) 0 units SC ACHS [facility] PRN Reason: Protocol Last Admin: 01/23/17 07:42 Dose: Not Given Non-Formulary Medication (Insulin Glargine/Lixisenatide [Soliqua 100 Unit-33 Mcg /Ml Pen]) 60 units SQ ONCE [facility] - Labs Labs: 01/23/17 06:00 01/23/17 06:00 - Constitutional Appears: Other (feels weak) - Neck Exam Neck Exam: absent: Lymphadenopathy, Meningismus - Respiratory Exam Respiratory Exam: Decreased Breath Sounds - Cardiovascular Exam Cardiovascular Exam: +S1, +S2 - GI/Abdominal Exam GI & Abdominal Exam: Soft. absent: Tenderness Assessment and Plan - Assessment and Plan (Free Text) Plan: Assessment sepsis due to gram negative bacilli bacteremia, R/O acute gastroenteritis R/O intra-abdominal infection DM HTN obesity with BMI 35 Plan we have changed antibiotics to Merrem pending identification and sensitivities of the gram negative bacilli in the blood follow up CT scan of the abdomen and pelvis discussed with Dr. Chapa will monitor clinically
--- NOTE | 2017-01-23 12:55 | CON ---
HISTORY OF PRESENT ILLNESS: A 61-year-old female seen at bedside with her present and her daughter present for consultation, evaluation and management of a recent abscess formation on her right great toe. The patient states that she had a hyperkeratotic lesion buildup in that area which was painful and progressed to have her great toe red, hot, and swollen. She states she is feeling much better since admission. PAST MEDICAL HISTORY: The patient's medical history is significant for longstanding type 2 diabetes with peripheral neuropathy, essential hypertension, and hyperlipidemia. PAST SURGICAL HISTORY: Includes cholecystectomy. ALLERGIES: THE PATIENT IS ALLERGIC TO SHELLFISH. SOCIAL HISTORY: The patient is . Never smoked. Denies illicit drug use. Denies alcohol abuse. FAMILY HISTORY: Remarkable for diabetes. OBJECTIVE: EXTREMITIES: Palpable pedal pulses noted bilaterally. The patient is unable to detect 5.07 g monofilament wire testing bilaterally. Absent pedal hair growth noted bilaterally. Lower extremity skin presents thin, shiny discolored bilaterally. No interdigital macerations noted bilaterally. Capillary filling time is within normal limits bilaterally. Right great toe presents with edema and erythema. There is noted to be a large hyperkeratotic lesion with the presence of a hematoma like abscess formation underlying it. Area is painful to the touch. There is no drainage noted. Cellulitis was localized and not ascending. ASSESSMENT: Abscess formation to the right great toe with underlying ulceration secondary to neglected hyperkeratotic lesion. PLAN: The patient was examined and a simple incision and drainage was performed at bedside which yielded approximately 4 mL of purulent discharge. There was 4 mL of purulent discharge which revealed an underlying ulceration that measures approximately 1.5 cm x 1.2 cm x 0.3 cm. The purulent was foul-smelling and thick. A culture was taken and submitted for sensitivities. The wound was cleansed with Betadine solution and flushed with normal sterile saline and application of Iodosorb and a dry sterile dressing will be applied. We will order x-rays and possibly MRIs pending x-ray results to rule out underlying osteomyelitis. It should be noted that the ulceration does not probe to bone at this time. Infectious Disease note is read and appreciated. We will await x-ray results to differentiate if MRI is warranted. The patient will be seen and followed daily. Charlie Gutierrez DPM [facility] # [id number]
--- NOTE | 2017-01-23 14:54 | RAD ---
PROCEDURE: Right Foot Radiographs. HISTORY: diabetic right grea toe ulcer COMPARISON: None. FINDINGS: BONES: Normal. No fracture. JOINTS: Normal. SOFT TISSUES: Normal. OTHER FINDINGS: Calcaneal spurs are seen IMPRESSION: No acute finding
--- NOTE | 2017-01-23 14:59 | CT ---
PROCEDURE: CT Abdomen and Pelvis without intravenous contrast HISTORY: Abd pain COMPARISON: 06/28/2012 CT TECHNIQUE: Without contrast.. Contrast Dose: Radiation dose: Total exam DLP = 1245 mGy-cm. This CT exam was performed using one or more of the following dose reduction techniques: Automated exposure control, adjustment of the mA and/or kV according to patient size, and/or use of iterative reconstruction technique. FINDINGS: LOWER THORAX: Unremarkable. LIVER: Unremarkable. No gross lesion or ductal dilatation. GALLBLADDER AND BILE DUCTS: Gallbladder removed PANCREAS: Unremarkable. No gross lesion or ductal dilatation. SPLEEN: Unremarkable. ADRENALS: Unremarkable. No mass. KIDNEYS AND URETERS: Unremarkable. No hydronephrosis. No solid mass. VASCULATURE: Unremarkable. No aortic aneurysm. BOWEL: Unremarkable. No obstruction. No gross mural thickening. APPENDIX: Unremarkable. Normal appendix. PERITONEUM: Unremarkable. No free fluid. No free air. LYMPH NODES: Unremarkable. No enlarged lymph nodes. BLADDER: Unremarkable. REPRODUCTIVE: There is a left adnexal cyst measuring 4.7 x 5.7 cm. This is unchanged BONES: No acute fracture. OTHER FINDINGS: None. IMPRESSION: No acute findings
--- NOTE | 2017-01-23 15:07 | CP.PCM.CON ---
History of Present Illness - History of Present Illness History of Present Illness: CRITICAL CARE PROGRESS NOTE HPI: Patient is 61yo female with PMHx of HTN, DM, presented with generalized weakness, fatigue, chills. Pt reports symptoms began on Monday. Patient was admitted to general medical floor for R toe cellulitis/abscess, overnight was hypotensive SBP 80s, given 500cc bolus. Current BP 98/55, HR 90s, afebrile, comfortable. Awake, alert, with no major complaints, sitting in a chair, conversing. NO other constitutional symptoms. 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 fam hx: mother, sister, brother- [place], DM home meds: glipizide/metformin hydrochloride, empagliflozin, lipitor, valstartan /HCTZ, soliqua, ursodiol allergy: shellfish Review of Systems - Review of Systems Review of Systems: as per HPI Past Patient History - Infectious Disease Hx of Infectious Diseases: None - Tetanus Immunizations Tetanus Immunization: Unknown - Past Social History Smoking Status: Never Smoked - CARDIAC Hx Hypertension: Yes - PULMONARY Hx Respiratory Disorders: No - ENDOCRINE/METABOLIC Hx Diabetes Mellitus Type 2: Yes - HEMATOLOGICAL/ONCOLOGICAL Hx Blood Disorders: No Hx Blood Transfusions: No Hx Blood Transfusion Reaction: No - INTEGUMENTARY Hx Dermatological Problems: No - MUSCULOSKELETAL/RHEUMATOLOGICAL Hx Musculoskeletal Disorders: Yes - GASTROINTESTINAL Hx Gastrointestinal Disorders: No - PSYCHIATRIC Hx Emotional Abuse: No Hx Physical Abuse: No Hx Substance Use: No - SURGICAL HISTORY Hx Cholecystectomy: Yes - ANESTHESIA Hx Anesthesia Reactions: No Meds Allergies/Adverse Reactions: Allergies Allergy/AdvReac Type Severity Reaction Status Date / Time shellfish derived AdvReac RASH Verified 01/22/17 07:20 - Medications Medications: Current Medications Acetaminophen (Tylenol 325mg Tab) 650 mg PO Q4H PRN PRN Reason: Fever >100.4 F Last Admin: 01/23/17 05:27 Dose: 650 mg Aspirin (Ecotrin) 81 mg PO DAILY [facility] Atorvastatin Calcium (Lipitor) 20 mg PO HS [facility] Last Admin: 01/22/17 21:26 Dose: 20 mg Hydrochlorothiazide (Microzide) 12.5 mg PO DAILY [facility] Last Admin: 01/22/17 12:44 Dose: Not Given Sodium Chloride (Sodium Chloride 0.9%) 500 mls @ 500 mls/hr IV .Q1H [facility] Last Admin: 01/23/17 08:18 Dose: 500 mls/hr Meropenem 1g/NS 100mL IVPB (Meropenem 1g/Ns 100ml Ivpb) 1 gm in 100 mls @ 100 mls/hr IVPB Q8 [facility] PRN Reason: Protocol Stop: 01/30/17 12:45 Insulin Human Regular (Humulin R High) 0 units SC ACHS [facility] PRN Reason: Protocol Last Admin: 01/23/17 12:39 Dose: Not Given Non-Formulary Medication (Insulin Glargine/Lixisenatide [Soliqua 100 Unit-33 Mcg /Ml Pen]) 60 units SQ ONCE [facility] Last Admin: 01/23/17 12:40 Dose: 60 units Physical Exam - Constitutional Appears: Non-toxic, No Acute Distress - Head Exam Head Exam: ATRAUMATIC - Eye Exam Eye Exam: EOMI, Normal appearance - ENT Exam ENT Exam: Mucous Membranes Moist - Neck Exam Neck exam: Positive for: Normal Inspection - Respiratory Exam Respiratory Exam: Clear to Auscultation Bilateral, NORMAL BREATHING PATTERN - Cardiovascular Exam Cardiovascular Exam: REGULAR RHYTHM, RRR, +S1, +S2 - GI/Abdominal Exam GI & Abdominal Exam: Normal Bowel Sounds, Soft - Extremities Exam Additional comments: R toe wrapped with curlex Results - Vital Signs Recent Vital Signs: Last Vital Signs Temp 98.3 F 01/23/17 07:30 Pulse 85 01/23/17 10:20 Resp 20 01/23/17 07:30 BP 101/49 L 01/23/17 13:00 Pulse Ox 100 01/23/17 07:30 - Labs Result Diagrams: 01/23/17 06:00 01/23/17 06:00 Labs: Laboratory Results - last 24 hr 01/22/17 01/22/17 01/22/17 16:08 17:35 20:53 WBC RBC Hgb Hct MCV MCH MCHC RDW Plt Count MPV pO2 VBG pH VBG pCO2 VBG HCO3 VBG Total CO2 VBG O2 Sat (Calc) VBG Base Excess VBG Potassium Sodium Chloride Glucose Lactate FiO2 Potassium Carbon Dioxide Anion Gap BUN Creatinine Est GFR ( Amer) Est GFR (Non-Af Amer) POC Glucose (mg/dL) 206 H 153 H Random Glucose Calcium Total Bilirubin AST ALT Alkaline Phosphatase Troponin I Total Protein Albumin Globulin Albumin/Globulin Ratio Venous Blood Potassium Influenza Typ A,B (EIA) Negative for flu a/b 01/23/17 01/23/17 01/23/17 05:26 06:00 06:00 WBC 8.4 D RBC 3.56 Hgb 10.8 L Hct 31.6 L MCV 88.8 MCH 30.3 MCHC 34.2 RDW 13.5 Plt Count 127 MPV 10.3 pO2 43 VBG pH 7.30 L VBG pCO2 49.0 VBG HCO3 24.1 VBG Total CO2 25.6 VBG O2 Sat (Calc) 82.7 H VBG Base Excess -2.8 L VBG Potassium 3.3 L Sodium 137.0 139 Chloride 106.0 105 Glucose 128 H Lactate 1.4 FiO2 21.0 Potassium 3.4 L Carbon Dioxide 22 Anion Gap 15 BUN 26 H Creatinine 1.0 Est GFR ( Amer) > 60 Est GFR (Non-Af Amer) 56 POC Glucose (mg/dL) Random Glucose 123 H Calcium 8.1 L Total Bilirubin 1.2 AST 90 H D ALT 61 H Alkaline Phosphatase 60 Troponin I 0.13 H* D Total Protein 6.0 Albumin 3.5 Globulin 2.6 Albumin/Globulin Ratio 1.3 Venous Blood Potassium 3.3 L Influenza Typ A,B (EIA) 01/23/17 01/23/17 01/23/17 07:34 11:22 12:00 WBC RBC Hgb Hct MCV MCH MCHC RDW Plt Count MPV pO2 VBG pH VBG pCO2 VBG HCO3 VBG Total CO2 VBG O2 Sat (Calc) VBG Base Excess VBG Potassium Sodium Chloride Glucose Lactate FiO2 Potassium Carbon Dioxide Anion Gap BUN Creatinine Est GFR ( Amer) Est GFR (Non-Af Amer) POC Glucose (mg/dL) 132 H 218 H Random Glucose Calcium Total Bilirubin AST ALT Alkaline Phosphatase Troponin I 0.09 D Total Protein Albumin Globulin Albumin/Globulin Ratio Venous Blood Potassium Influenza Typ A,B (EIA) Assessment & Plan - Assessment and Plan (Free Text) Assessment: 61yo female with gram negative bacteremia Gram Neg bacteremia DM Hypotension, resolved - currently afebrile, HD stable, comfortable on room air - BP stable, 98/55, labs noted Recommend - supp o2 as needed - abx coverage as per ID - hold all BP meds - IVF hydration - ECHO - cardiology follow up - check lactate - follow up CT a/p - follow up R toe cultures - DVT ppx - cont care on telemetry critical care time 35 minutes
--- NOTE | 2017-01-23 15:09 | CARD ---
APPROVED REPORT EKG Measurement Heart [id number] <Conclusion> Normal sinus rhythm Normal ECG
[2017-01-23] MEDS ORDERED: Potassium Chloride 20 mEq ER Tab PO ONE (19:42)
[2017-01-23] MEDS: Sodium Chloride 0.9% 1,000 ML IV SCH (21:08)
[2017-01-24] MEDS: Meropenem 1g/NS 100mL IVPB 1 GM/100 ML PIGGYBACK IVPB SCH ×3 (05:24→22:17)
[2017-01-24] MEDS: Sodium Chloride 0.9% 1,000 ML IV SCH (05:48)
--- NOTE | 2017-01-24 07:57 | CP.PCM.PN ---
<Stephy Bentley - Last Filed: 01/24/17 12:42> Subjective - Date & Time of Evaluation Date of Evaluation: 01/24/17 Time of Evaluation: 07:53 - Subjective Subjective: PGY-[address] Martinez Patient seen and examined at bedside. No acute distress. Patient states she is feeling better. She states that after the I&D her foot was swollen however it has resolved. She denies chest pain, sob, n/v/d/c. She is tolerating diet. Objective - Vital Signs/Intake and Output Vital Signs (last 24 hours): Temp Pulse Resp BP Pulse Ox 99.3 F 91 H 20 99/50 L 94 L 01/24/17 07:30 01/24/17 07:30 01/24/17 07:30 01/24/17 07:30 01/24/17 07:30 Intake and Output: 01/24/17 01/24/17 06:59 18:59 Intake Total 1120 Output Total 1800 Balance -680 - Medications Medications: Current Medications Acetaminophen (Tylenol 325mg Tab) 650 mg PO Q4H PRN PRN Reason: Fever >100.4 F Last Admin: 01/23/17 15:30 Dose: 650 mg Aspirin (Ecotrin) 81 mg PO DAILY [facility] Atorvastatin Calcium (Lipitor) 20 mg PO HS [facility] Last Admin: 01/23/17 21:08 Dose: 20 mg Hydrochlorothiazide (Microzide) 12.5 mg PO DAILY [facility] Last Admin: 01/22/17 12:44 Dose: Not Given Meropenem 1g/NS 100mL IVPB (Meropenem 1g/Ns 100ml Ivpb) 1 gm in 100 mls @ 100 mls/hr IVPB Q8 [facility] PRN Reason: Protocol Stop: 01/30/17 12:45 Last Admin: 01/24/17 05:24 Dose: 100 mls/hr Sodium Chloride (Sodium Chloride 0.9%) 1,000 mls @ 125 mls/hr IV .Q8H [facility] Last Admin: 01/24/17 05:48 Dose: 125 mls/hr Insulin Human Regular (Humulin R High) 0 units SC ACHS [facility] PRN Reason: Protocol Last Admin: 01/23/17 22:45 Dose: Not Given Non-Formulary Medication (Insulin Glargine/Lixisenatide [Soliqua 100 Unit-33 Mcg /Ml Pen]) 60 units SQ ONCE [facility] Last Admin: 01/23/17 12:40 Dose: 60 units - Labs Labs: 01/23/17 06:00 01/23/17 06:00 - Constitutional Appears: Well, No Acute Distress - Head Exam Head Exam: ATRAUMATIC, NORMAL INSPECTION, NORMOCEPHALIC - Eye Exam Eye Exam: EOMI, Normal appearance - ENT Exam ENT Exam: Mucous Membranes Moist - Respiratory Exam Respiratory Exam: Clear to Ausculation Bilateral, NORMAL BREATHING PATTERN. absent: Decreased Breath Sounds, Rales, Rhonchi, Wheezes, Respiratory Distress - Cardiovascular Exam Cardiovascular Exam: REGULAR RHYTHM, +S1, +S2. absent: Tachycardia, Murmur - GI/Abdominal Exam GI & Abdominal Exam: Soft, Normal Bowel Sounds. absent: Distended, Firm, Guarding, Tenderness - Extremities Exam Additional comments: left foot, great toe s/p I&D, dressing clean, dry and intact - Neurological Exam Neurological Exam: Alert, Awake, Oriented x3 - Skin Skin Exam: Dry, Intact, Normal Color, Warm Assessment and Plan - Assessment and Plan (Free Text) Assessment: 61 yo female with PMH of HTN, DM presents to ED with severe sepsis 2/2 to possible foot abscess s/p I&D, blood cultures positive for gram negative rods. Plan: 1. severe sepsis with hypotension - 2/2 foot abscess and bactremia - podiatry preformed bedside I&D s/p day 1 - patient continues to have fever yesterday afternoon - meropenem started - patient hypotensive yesterday, responded to IVF - cont IVF - CT abd/pel showed no acute findings - foot Xray showed no acute finding - flu negative - procalcitonin elevated - blood culture gram negative tatum - pending wound cultures - ID and podiatry are following 2. elevated troponins - 2/2 CAD vs hypotension - most likely 2/2 to hypotension because trops trended down once hypotension resolved - cont Lipitor and ASA - hold HTN meds including b blockers due to hypotension - echo showed EF of 62% - consult cardiology 3. DMII - controlled - cont iss - cont insulin glarine - fingersticks ACHS 4. HTN - controlled - patient was hypotensive yesterday - hold BP meds <Peter Martinez S - Last Filed: 01/25/17 07:41> Objective - Vital Signs/Intake and Output Vital Signs (last 24 hours): Temp Pulse Resp BP Pulse Ox 99.1 F 83 18 108/53 L 94 L 01/24/17 16:00 01/24/17 16:00 01/24/17 16:00 01/24/17 16:00 01/24/17 16:00 Intake and Output: 01/25/17 01/25/17 06:59 18:59 Intake Total 240 Output Total 300 Balance -60 - Medications Medications: Current Medications Acetaminophen (Tylenol 325mg Tab) 650 mg PO Q4H PRN PRN Reason: Fever >100.4 F Last Admin: 01/23/17 15:30 Dose: 650 mg Aspirin (Ecotrin) 81 mg PO DAILY [facility] Last Admin: 01/24/17 10:20 Dose: 81 mg Atorvastatin Calcium (Lipitor) 20 mg PO HS [facility] Last Admin: 01/24/17 22:17 Dose: 20 mg Clopidogrel Bisulfate (Plavix) 75 mg PO DAILY [facility] Last Admin: 01/24/17 12:49 Dose: 75 mg Hydrochlorothiazide (Microzide) 12.5 mg PO DAILY [facility] Last Admin: 01/22/17 12:44 Dose: Not Given Meropenem 1g/NS 100mL IVPB (Meropenem 1g/Ns 100ml Ivpb) 1 gm in 100 mls @ 100 mls/hr IVPB Q8 [facility] PRN Reason: Protocol Stop: 01/30/17 12:45 Last Admin: 01/25/17 05:29 Dose: 100 mls/hr Insulin Human Regular (Humulin R High) 0 units SC ACHS [facility] PRN Reason: Protocol Last Admin: 01/25/17 01:38 Dose: Not Given Non-Formulary Medication (Insulin Glargine/Lixisenatide [Soliqua 100 Unit-33 Mcg /Ml Pen]) 60 units SQ DAILY [facility] Last Admin: 01/24/17 12:12 Dose: 60 units - Labs Labs: 01/25/17 06:00 01/25/17 06:00 Assessment and Plan - Assessment and Plan (Free Text) Plan: Pt seen and examined. Note of medical delivery technician reviewed and I agree with it. Labs and meds reviewed. BP controlled. Will most likely need cath but would wait until her infection is under control and cultures are finalized. She had severe sepsis and unstable BP a few days ago. She is Diabetic and also received contrast for her CT of Abd/pelvis. She will need to stay on Plavix. Spoke to Dr Barry and will schedule for cath next week. Dm-2 is controlled. Will wait for final cultures to see if Abx can be changed to PO. LE doppler was ordered but now is no longer in system, will re-order duplex arterial doppler.
[2017-01-24] MEDS ORDERED: Sodium Chloride 0.9% 1,000 ML IV SCH (08:04)
[2017-01-24] MEDS: Insulin Reg-HIGH-Coverage SC SCH ×3 (08:39→17:04)
--- NOTE | 2017-01-24 11:14 | CP.PCM.PN ---
<Anatoliy Munson - Last Filed: 01/24/17 11:02> Subjective - Date & Time of Evaluation Date of Evaluation: 01/24/17 Time of Evaluation: 08:50 - Subjective Subjective: 61 year old female with PMH of DM, peripheral neuropathy, HTN, and hyperlipidemia was seen at bedside with present 1 day s/p I and D of the right plantar hallux. She is seen resting comfortably in bed, NAD, and AA0x3. Patient states that she is feeling better today compared to yesterday. She reported feeling some chills last night but denies any at this moment. She reports pain when ambulating at the right foot. She denies n/v/sob/cp/f or d. Objective - Vital Signs/Intake and Output Vital Signs (last 24 hours): Temp Pulse Resp BP Pulse Ox 99.3 F 91 H 20 99/50 L 94 L 01/24/17 07:30 01/24/17 07:30 01/24/17 07:30 01/24/17 07:30 01/24/17 07:30 Intake and Output: 01/24/17 01/24/17 06:59 18:59 Intake Total 1120 300 Output Total 1800 Balance -680 300 - Medications Medications: Current Medications Acetaminophen (Tylenol 325mg Tab) 650 mg PO Q4H PRN PRN Reason: Fever >100.4 F Last Admin: 01/23/17 15:30 Dose: 650 mg Aspirin (Ecotrin) 81 mg PO DAILY [facility] Last Admin: 01/24/17 10:20 Dose: 81 mg Atorvastatin Calcium (Lipitor) 20 mg PO [facility] Last Admin: 01/23/17 21:08 Dose: 20 mg Clopidogrel Bisulfate (Plavix) 75 mg PO DAILY [facility] Hydrochlorothiazide (Microzide) 12.5 mg PO DAILY [facility] Last Admin: 01/22/17 12:44 Dose: Not Given Meropenem 1g/NS 100mL IVPB (Meropenem 1g/Ns 100ml Ivpb) 1 gm in 100 mls @ 100 mls/hr IVPB Q8 [facility] PRN Reason: Protocol Stop: 01/30/17 12:45 Last Admin: 01/24/17 05:24 Dose: 100 mls/hr Sodium Chloride (Sodium Chloride 0.9%) 1,000 mls @ 75 mls/hr IV .[id number] [facility] Stop: 01/24/17 22:24 Insulin Human Regular (Humulin R High) 0 units SC ACHS [facility]E PRN Reason: Protocol Last Admin: 01/24/17 08:39 Dose: 1 units Non-Formulary Medication (Insulin Glargine/Lixisenatide [Soliqua 100 Unit-33 Mcg /Ml Pen]) 60 units SQ DAILY SAE - Labs Labs: 01/23/17 06:00 01/23/17 06:00 - Constitutional Appears: Well, Non-toxic, No Acute Distress - Extremities Exam Additional comments: Vasc: DP pulses 1/4 bilaterally, PT pulses 2/4 bilaterally, TAKER OFF HEMP FIBER <3 seconds x10 digits, edema noted to the entire right foot Ortho: pain with palpation surrounding ulceration site to the right foot Neuro: protective sensation and gross sensation diminished bilaterally Derm: erythema present to the entire right foot, ulceration to the right plantar hallux measuring approximately 1.5 xm x1.2 cm x.3 cm; granular base. No active drainage today, mild odorous, much improved since yesterday. - Neurological Exam Neurological Exam: Alert, Awake, Oriented x3 - Psychiatric Exam Psychiatric exam: Normal Affect, Normal Mood Assessment and Plan - Assessment and Plan (Free Text) Assessment: 61 year old female with PMH of DM, peripheral neuropathy, HTN, and hyperlipidemia was seen at bedside with present 1 day s/p I and D of the right plantar hallux. Plan: Patient examined and evaluated Charts, labs, vitals reviewed = WBC is 8.4; much improved from yesterday WBC= 17.8 (01/22/17) Discussed plan in detail with attending Dr. Gutierrez Ulceration cleansed with saline, dressed with betadine, dsd, and kerlix X-rays shows no OM, bone normal, and no fracture Patient does not need MRI at this time Wound culture taken- pending results Will continue local wound care while in house Order forefoot offloading shoe to right while ambulating at all times Patient may WBAT in forefoot offloading shoe to the right Will f/u in wound care with Dr. Gutierrez as scheduled for 01/30/17 Will continue to follow while in house <Charlie Gutierrez - Last Filed: 01/24/17 13:46> Objective - Vital Signs/Intake and Output Vital Signs (last 24 hours): Temp Pulse Resp BP Pulse Ox 99.3 F 91 H 20 99/50 L 94 L 01/24/17 07:30 01/24/17 07:30 01/24/17 07:30 01/24/17 07:30 01/24/17 07:30 Intake and Output: 01/24/17 01/24/17 06:59 18:59 Intake Total 1120 660 Output Total 1800 750 Balance -680 -90 - Medications Medications: Current Medications Acetaminophen (Tylenol 325mg Tab) 650 mg PO Q4H PRN PRN Reason: Fever >100.4 F Last Admin: 01/23/17 15:30 Dose: 650 mg Aspirin (Ecotrin) 81 mg PO DAILY [facility] Last Admin: 01/24/17 10:20 Dose: 81 mg Atorvastatin Calcium (Lipitor) 20 mg PO HS [facility] Last Admin: 01/23/17 21:08 Dose: 20 mg Clopidogrel Bisulfate (Plavix) 75 mg PO DAILY [facility] Last Admin: 01/24/17 12:49 Dose: 75 mg Hydrochlorothiazide (Microzide) 12.5 mg PO DAILY [facility] Last Admin: 01/22/17 12:44 Dose: Not Given Meropenem 1g/NS 100mL IVPB (Meropenem 1g/Ns 100ml Ivpb) 1 gm in 100 mls @ 100 mls/hr IVPB Q8 [facility] PRN Reason: Protocol Stop: 01/30/17 12:45 Last Admin: 01/24/17 05:24 Dose: 100 mls/hr Sodium Chloride (Sodium Chloride 0.9%) 1,000 mls @ 75 mls/hr IV .[id number] [facility] Stop: 01/24/17 22:24 Insulin Human Regular (Humulin R High) 0 units SC ACHS [facility] PRN Reason: Protocol Last Admin: 01/24/17 12:17 Dose: Not Given Non-Formulary Medication (Insulin Glargine/Lixisenatide [Soliqua 100 Unit-33 Mcg /Ml Pen]) 60 units SQ DAILY [facility] Last Admin: 01/24/17 12:12 Dose: 60 units Attending/Attestation - Attestation I have personally seen and examined this patient.: Yes I have fully participated in the care of the patient.: Yes I have reviewed all pertinent clinical information, including history, physical exam and plan: Yes
--- NOTE | 2017-01-24 11:49 | CP.PCM.CON ---
History of Present Illness - History of Present Illness History of Present Illness: Seen and examined at bedside this morning, chart reviewed. Request for GI consult is for Abdominal pain. HPI: This is a 61 year old female with a history of DM, HTN came to the ER with complaints of generalized weakness, chills , nausea that began on Monday. She did have abdominal pain at the time that has now resolved. She had an episode of loose BM, no melena or BRBPR. No OSB or chest pain. She does have a right foot callus and is being followed as an outpatient. She does endorses that her was sick last week and on antibiotics, who is currently at the bedside. Denies any recent travel, contributory food intake. At home she tool her blood sugar and was over 200, gave herself insulin. In the ER she was foudn to be hypotensive and bolused with fluids. She did see Dr. Woodard in outpatient office a few weeks ago for c/o increase abdominal "growling" she is scheduled for ct scan A&P next Monday. She is now having formed BM, no melena or BRBPR. Ct scan A&P done yesterday that does not report any acute abdominal findings, reports adnexal cyst that is unchanged. Her last colon was over 10 years. No weight loss or anorexia. PMH: HTN, DM, CBD stone with ERCP/stent many years ago PSH: cholecytectomy, varicose vein removal, colon over 10 years ago Social HX: former smoker, denies ETOH and drugs Family HX: CA/DM Allergies: shellfish derived Meds: reviewed as per MAR ROS: systems reviewed with positive findings, see HPI Past Patient History - Infectious Disease Hx of Infectious Diseases: None - Tetanus Immunizations Tetanus Immunization: Unknown - Past Social History Smoking Status: Never Smoked - CARDIAC Hx Hypertension: Yes - PULMONARY Hx Respiratory Disorders: No - ENDOCRINE/METABOLIC Hx Diabetes Mellitus Type 2: Yes - HEMATOLOGICAL/ONCOLOGICAL Hx Blood Disorders: No Hx Blood Transfusions: No Hx Blood Transfusion Reaction: No - INTEGUMENTARY Hx Dermatological Problems: No - MUSCULOSKELETAL/RHEUMATOLOGICAL Hx Musculoskeletal Disorders: Yes - GASTROINTESTINAL Hx Gastrointestinal Disorders: No - PSYCHIATRIC Hx Emotional Abuse: No Hx Physical Abuse: No Hx Substance Use: No - SURGICAL HISTORY Hx Cholecystectomy: Yes - ANESTHESIA Hx Anesthesia Reactions: No Meds Allergies/Adverse Reactions: Allergies Allergy/AdvReac Type Severity Reaction Status Date / Time shellfish derived AdvReac RASH Verified 01/22/17 07:20 - Medications Medications: Current Medications Acetaminophen (Tylenol 325mg Tab) 650 mg PO Q4H PRN PRN Reason: Fever >100.4 F Last Admin: 01/23/17 15:30 Dose: 650 mg Aspirin (Ecotrin) 81 mg PO DAILY [facility] Last Admin: 01/24/17 10:20 Dose: 81 mg Atorvastatin Calcium (Lipitor) 20 mg PO HS [facility] Last Admin: 01/23/17 21:08 Dose: 20 mg Clopidogrel Bisulfate (Plavix) 75 mg PO DAILY [facility] Hydrochlorothiazide (Microzide) 12.5 mg PO DAILY [facility] Last Admin: 01/22/17 12:44 Dose: Not Given Meropenem 1g/NS 100mL IVPB (Meropenem 1g/Ns 100ml Ivpb) 1 gm in 100 mls @ 100 mls/hr IVPB Q8 [facility] PRN Reason: Protocol Stop: 01/30/17 12:45 Last Admin: 01/24/17 05:24 Dose: 100 mls/hr Sodium Chloride (Sodium Chloride 0.9%) 1,000 mls @ 75 mls/hr IV .[id number] [facility] Stop: 01/24/17 22:24 Insulin Human Regular (Humulin R High) 0 units SC ACHS [facility] PRN Reason: Protocol Last Admin: 01/24/17 08:39 Dose: 1 units Non-Formulary Medication (Insulin Glargine/Lixisenatide [Soliqua 100 Unit-33 Mcg /Ml Pen]) 60 units SQ DAILY [facility] Physical Exam - Constitutional Appears: No Acute Distress - Head Exam Head Exam: NORMOCEPHALIC - Eye Exam Eye Exam: Normal appearance. absent: Scleral icterus - ENT Exam ENT Exam: Mucous Membranes Moist - Neck Exam Neck exam: Positive for: Normal Inspection - Respiratory Exam Respiratory Exam: Clear to Auscultation Bilateral, NORMAL BREATHING PATTERN. absent: Respiratory Distress - Cardiovascular Exam Cardiovascular Exam: +S1, +S2 - GI/Abdominal Exam GI & Abdominal Exam: Soft. absent: Distended, Guarding, Normal Bowel Sounds, Organomegaly, Rebound, Tenderness - Extremities Exam Extremities exam: Positive for: pedal edema, pedal pulses present. Negative for : calf tenderness Additional comments: right foot with dressing just changed by podiatry Results - Vital Signs Recent Vital Signs: Last Vital Signs Temp 99.3 F 01/24/17 07:30 Pulse 91 H 01/24/17 07:30 Resp 20 01/24/17 07:30 BP 99/50 L 01/24/17 07:30 Pulse Ox 94 L 01/24/17 07:30 - Labs Result Diagrams: 01/23/17 06:00 01/23/17 06:00 Labs: Laboratory Results - last 24 hr 01/23/17 01/23/17 01/23/17 11:22 12:00 16:22 POC Glucose (mg/dL) 218 H 149 H Troponin I 0.09 D 01/23/17 01/23/17 01/24/17 18:15 20:55 07:12 POC Glucose (mg/dL) 171 H 153 H Troponin I 0.09 Assessment & Plan - Assessment and Plan (Free Text) Assessment: ASSESSMENT: Sepsis w/ hypotension, leukocytosis improving Right Toe ulcer s/p I&D, s/p culturegram negative rods Blood cultures Gram negative rods Abdominal Pain resolved, s/p ct scan, no acute intabddominal or pelvic findings Peripheral Nueropathy Elevated troponins DM HTN PLAN: on IV antibiotics continue diet as tolerated as per ID/ cardiology Patient was recommended elective outpatient colonoscopy Thank you for allowing us to participate in your patient care, will make further recommendation based upon clinical course. Seen and discussed w/ Dr. Woodard.
[2017-01-24] MEDS: [UNRECOGNIZED DRUG - OTHER] SQ SCH (12:12)
--- NOTE | 2017-01-24 16:41 | PN ---
SUBJECTIVE: The patient is in bed, in no acute distress, nontoxic. The patient was seen earlier. PHYSICAL EXAMINATION: VITAL SIGNS: Temperature is 99, blood pressure is 99/50, respiratory rate of 20, heart rate of 91; T-max with 102. HEENT: Unremarkable. NECK: Supple. LUNGS: Decreased breath sounds. HEART: Normal S1, S2. ABDOMEN: Soft and nontender. LABORATORY EXAMINATION: Reveals a white count is down to 8.4, hemoglobin of 10, platelets of 127. Chemistries reveal the BUN is 26, creatinine of 1.0. One troponin is elevated at 0.13. Microbiology reveals the gram-negative tatum in the blood and the gram-negative tatum in the foot with a lactobacillus species in the urine. Review of orders reveals the patient to be on meropenem. ASSESSMENT AND PLAN: A 61-year-old with sepsis due to a gram-negative bacteremia with a gram-negative from the foot. Dr. Gutierrez's note is reviewed. With Lactobacillus which is a gram-positive in the urine and follow with you. Vascular evaluation and podiatry followup and pending gram-negative tatum identification in the blood and the foot, on meropenem. The patient did have a CAT scan of the abdomen with no acute findings and the negative urinalysis. Braulio Doyle MD
--- NOTE | 2017-01-24 18:09 | CON ---
DATE: 01/24/2017 HISTORY OF PRESENT ILLNESS: The patient is a 61-year-old woman who presents with a foot ulcer and found to have gram-negative bacteremia. PAST MEDICAL HISTORY: The patient's past medical history is notable for diabetes mellitus, hypertension, and hypercholesterolemia with probable peripheral vascular disease. The patient denies chest pain and denies shortness of breath. No previous cardiac history is noted. SOCIAL HISTORY: The patient does not smoke. FAMILY HISTORY: The patient's family history is notable for a brother with a myocardial infarction x2 at the age of 60 as well as mother with coronary artery disease. PHYSICAL EXAMINATION: VITAL SIGNS: Blood pressure is 101/50, the heart rate is in the 90s. NECK: Negative JVD. LUNGS: Without rales. HEART: S1, S2. EXTREMITIES: Without edema. LABORATORY DATA: The white count was 17,000 which is down to 88, hemoglobin is 10.8. Chemistries; glucose is 153 with a creatinine of 1.0. EKG shows no acute changes. The troponin is 0.13 on admission and down to 0.09. IMPRESSION: 1. Gram-negative bacteremia. 2. Diabetes mellitus. 3. Hypertension. 4. Hypercholesterolemia. 5. Feet ulcers. 6. High probability for coronary artery disease. PLAN: Given these findings, we will start the patient on aspirin as well as Plavix. I have discussed the patient's high probability for coronary artery disease with the patient and family. We will arrange for cardiac catheterization next week once her bacteremia is resolved. Jose Barry MD
[2017-01-25] MEDS: Insulin Reg-HIGH-Coverage SC SCH ×5 (01:38→21:45)
[2017-01-25] MEDS: Meropenem 1g/NS 100mL IVPB 1 GM/100 ML PIGGYBACK IVPB SCH ×3 (05:29→21:17)
[2017-01-25 06:54] LABS: HEMATOCRIT 27.6 % (36.0-48.0); MEAN CELL VOLUME 86.5 fl (80.0-105.0); MEAN CORPUSCULAR HEMOGLOBIN 29.5 pg (25.0-35.0); MEAN CORPUSCULAR HGB CONC 34.1 g/dl (31.0-37.0); MEAN PLATELET VOLUME 10.3 fl (7.0-11.0); RED CELL DISTRIBUTION WIDTH 13.2 % (11.5-14.5); WHITE BLOOD COUNT 5.6 10^3/ul (4.5-11.0)
[2017-01-25 07:03] LABS: ALB/GLOB RATIO 1.1 (1.1-1.8); ALKALINE PHOSPHATASE 108 U/L (38-126); ALT/SGPT 72 U/L (7-56); AST/SGOT 85 U/L (14-36); BILIRUBIN,TOTAL 0.8 mg/dL (0.2-1.3); BLOOD UREA NITROGEN 19 mg/dL (7-21); CALCIUM 8.4 mg/dL (8.4-10.5); CARBON DIOXIDE 23 mmol/L (21-33); CHLORIDE 108 mmol/L (98-107); GFR AFRICAN-AMERICAN > 60; GLUCOSE,RANDOM 88 mg/dL (70-110); MAGNESIUM 1.8 mg/dL (1.7-2.2); POTASSIUM 3.7 mmol/L (3.6-5.0); SODIUM 138 mmol/L (132-148); TOTAL PROTEIN 5.7 g/dL (5.8-8.3)
--- NOTE | 2017-01-25 09:33 | CP.PCM.PN ---
<Anatoliy Munson - Last Filed: 01/25/17 09:28> Subjective - Date & Time of Evaluation Date of Evaluation: 01/25/17 Time of Evaluation: 09:28 - Subjective Subjective: 61 year old female with PMH of DM, peripheral neuropathy, HTN, and hyperlipidemia was seen at bedside with and daughter present 2 day s/p I and D of the right plantar hallux. She is seen resting comfortably in chair NAD, and AA0x3. Dressing is clean, dry, and intact. Patient reports no acute overnight events. Patient denies pain today. She denies n/v/sob/cp/f or d. No other pedal complaints at this time. Objective - Vital Signs/Intake and Output Vital Signs (last 24 hours): Temp Pulse Resp BP Pulse Ox 100.5 F H 84 18 120/53 L 94 L 01/25/17 08:00 01/25/17 08:00 01/25/17 08:00 01/25/17 08:00 01/25/17 08:00 Intake and Output: 01/25/17 01/25/17 06:59 18:59 Intake Total 240 Output Total 300 Balance -60 - Medications Medications: Current Medications Acetaminophen (Tylenol 325mg Tab) 650 mg PO Q4H PRN PRN Reason: Fever >100.4 F Last Admin: 01/23/17 15:30 Dose: 650 mg Aspirin (Ecotrin) 81 mg PO DAILY [facility] Last Admin: 01/24/17 10:20 Dose: 81 mg Atorvastatin Calcium (Lipitor) 20 mg PO HS [facility] Last Admin: 01/24/17 22:17 Dose: 20 mg Clopidogrel Bisulfate (Plavix) 75 mg PO DAILY [facility] Last Admin: 01/24/17 12:49 Dose: 75 mg Hydrochlorothiazide (Microzide) 12.5 mg PO DAILY [facility] Last Admin: 01/22/17 12:44 Dose: Not Given Meropenem 1g/NS 100mL IVPB (Meropenem 1g/Ns 100ml Ivpb) 1 gm in 100 mls @ 100 mls/hr IVPB Q8 [facility] PRN Reason: Protocol Stop: 01/30/17 12:45 Last Admin: 01/25/17 05:29 Dose: 100 mls/hr Insulin Human Regular (Humulin R High) 0 units SC ACHS [facility] PRN Reason: Protocol Last Admin: 01/25/17 01:38 Dose: Not Given Non-Formulary Medication (Insulin Glargine/Lixisenatide [Soliqua 100 Unit-33 Mcg /Ml Pen]) 60 units SQ DAILY [facility] Last Admin: 01/24/17 12:12 Dose: 60 units - Labs Labs: 01/25/17 06:00 01/25/17 06:00 - Constitutional Appears: Well, Non-toxic, No Acute Distress - Extremities Exam Additional comments: Vasc: DP pulses 1/4 bilaterally, PT pulses 2/4 bilaterally, EQUIPMENT LEAD <3 seconds x10 digits, edema noted to the entire right foot, improving Ortho: no pain with palpation surrounding ulceration site to the right foot Neuro: protective sensation and gross sensation diminished bilaterally Derm: significantly decreased erythema present to the entire right foot, no ascending cellulits, ulceration to the right plantar hallux measuring approximately 1.5 xm x1.2 cm x.3 cm; granular base. No active drainage, no odor , no probe to bone, no undermining, no tunneling. - Neurological Exam Neurological Exam: Alert, Awake, Oriented x3 - Psychiatric Exam Psychiatric exam: Normal Affect, Normal Mood Assessment and Plan - Assessment and Plan (Free Text) Assessment: 61 year old female with PMH of DM, peripheral neuropathy, HTN, and hyperlipidemia was seen for ulceration of right plantar hallux and 2 day s/p I and D of the right plantar hallux. Plan: Patient examined and evaluated Charts, labs, vitals reviewed = WBC is 5.6, temperature 100.5F Discussed plan in detail with attending Dr. Gutierrez Ulceration cleansed with saline, dressed with Maxosorb, dsd, and kerlix X-rays shows no OM, bone normal, and no fracture Patient does not need MRI at this time Wound culture results- Klebsiella Oxytoca ID recs appreciated Pending dispense order for forefoot offloading shoe to right while ambulating at all times Highly recommend patient to get forefoot offloading shoe before being discharge Patient may WBAT in forefoot offloading shoe to the right Will f/u in wound care with Dr. Gutierrez as scheduled for 01/30/17 Patient is stable per podiatry for discharge Will continue local wound care and follow while in house <Charlie Gutierrez - Last Filed: 01/26/17 18:12> Objective - Vital Signs/Intake and Output Vital Signs (last 24 hours): Temp Pulse Resp BP Pulse Ox 98.3 F 68 20 119/80 95 01/26/17 08:50 01/26/17 08:50 01/26/17 08:50 01/26/17 08:50 01/26/17 08:50 Intake and Output: 01/26/17 01/26/17 06:59 18:59 Intake Total 1020 1080 Output Total 100 Balance 920 1080 - Medications Medications: Current Medications Acetaminophen (Tylenol 325mg Tab) 650 mg PO Q4H PRN PRN Reason: Fever >100.4 F Last Admin: 01/23/17 15:30 Dose: 650 mg Aspirin (Ecotrin) 81 mg PO DAILY [facility] Last Admin: 01/26/17 10:14 Dose: 81 mg Atorvastatin Calcium (Lipitor) 20 mg PO HS [facility] Last Admin: 01/25/17 21:17 Dose: Not Given Clopidogrel Bisulfate (Plavix) 75 mg PO DAILY [facility] Last Admin: 01/26/17 10:14 Dose: 75 mg Hydrochlorothiazide (Microzide) 12.5 mg PO DAILY [facility] Last Admin: 01/22/17 12:44 Dose: Not Given Meropenem 1g/NS 100mL IVPB (Meropenem 1g/Ns 100ml Ivpb) 1 gm in 100 mls @ 100 mls/hr IVPB Q8 [facility] PRN Reason: Protocol Stop: 01/30/17 12:45 Last Admin: 01/26/17 14:12 Dose: 100 mls/hr Insulin Human Regular (Humulin R High) 0 units SC ACHS [facility] PRN Reason: Protocol Last Admin: 01/26/17 17:24 Dose: 4 units Mupirocin (Bactroban Ointment) 0 gm TOP DAILY [facility] Last Admin: 01/26/17 12:22 Dose: 1 applic Non-Formulary Medication (Insulin Glargine/Lixisenatide [Soliqua 100 Unit-33 Mcg /Ml Pen]) 60 units SQ DAILY [facility] Last Admin: 01/26/17 10:14 Dose: 60 units - Labs Labs: 01/25/17 06:00 01/25/17 06:00 Attending/Attestation - Attestation I have personally seen and examined this patient.: Yes I have fully participated in the care of the patient.: Yes I have reviewed all pertinent clinical information, including history, physical exam and plan: Yes
--- NOTE | 2017-01-25 10:42 | CP.PCM.PN ---
<Stephy Bentley - Last Filed: 01/25/17 10:40> Subjective - Date & Time of Evaluation Date of Evaluation: 01/25/17 Time of Evaluation: 10:40 - Subjective Subjective: PGY-[address] Martinez Patient seen and examined at bedside. No acute distress. Patient states she is feeling better. She reports to have mild bilateral swelling, however this is her baseline. She has no other complaints, she denies chest pain, sob, n/v/d/c. She is tolerating diet. Objective - Vital Signs/Intake and Output Vital Signs (last 24 hours): Temp Pulse Resp BP Pulse Ox 100.5 F H 84 18 120/53 L 94 L 01/25/17 08:00 01/25/17 08:00 01/25/17 08:00 01/25/17 08:00 01/25/17 08:00 Intake and Output: 01/25/17 01/25/17 06:59 18:59 Intake Total 240 180 Output Total 300 Balance -60 180 - Medications Medications: Current Medications Acetaminophen (Tylenol 325mg Tab) 650 mg PO Q4H PRN PRN Reason: Fever >100.4 F Last Admin: 01/23/17 15:30 Dose: 650 mg Aspirin (Ecotrin) 81 mg PO DAILY [facility] Last Admin: 01/24/17 10:20 Dose: 81 mg Atorvastatin Calcium (Lipitor) 20 mg PO HS [facility] Last Admin: 01/24/17 22:17 Dose: 20 mg Clopidogrel Bisulfate (Plavix) 75 mg PO DAILY [facility] Last Admin: 01/24/17 12:49 Dose: 75 mg Hydrochlorothiazide (Microzide) 12.5 mg PO DAILY [facility] Last Admin: 01/22/17 12:44 Dose: Not Given Meropenem 1g/NS 100mL IVPB (Meropenem 1g/Ns 100ml Ivpb) 1 gm in 100 mls @ 100 mls/hr IVPB Q8 [facility] PRN Reason: Protocol Stop: 01/30/17 12:45 Last Admin: 01/25/17 05:29 Dose: 100 mls/hr Insulin Human Regular (Humulin R High) 0 units SC ACHS [facility] PRN Reason: Protocol Last Admin: 01/25/17 01:38 Dose: Not Given Non-Formulary Medication (Insulin Glargine/Lixisenatide [Soliqua 100 Unit-33 Mcg /Ml Pen]) 60 units SQ DAILY [facility] Last Admin: 01/24/17 12:12 Dose: 60 units - Labs Labs: 01/25/17 06:00 01/25/17 06:00 - Constitutional Appears: Well, No Acute Distress - Head Exam Head Exam: ATRAUMATIC, NORMAL INSPECTION, NORMOCEPHALIC - Eye Exam Eye Exam: EOMI, Normal appearance - ENT Exam ENT Exam: Mucous Membranes Moist - Respiratory Exam Respiratory Exam: Clear to Ausculation Bilateral, NORMAL BREATHING PATTERN. absent: Rales, Rhonchi, Wheezes, Respiratory Distress, Stridor - Cardiovascular Exam Cardiovascular Exam: REGULAR RHYTHM, +S1, +S2. absent: Tachycardia, Diastolic murmur, Murmur - GI/Abdominal Exam GI & Abdominal Exam: Soft, Normal Bowel Sounds. absent: Distended, Firm, Guarding, Tenderness - Extremities Exam Extremities Exam: Normal Inspection Additional comments: +1 pitting edema - Neurological Exam Neurological Exam: Alert, Awake, Oriented x3 - Skin Skin Exam: Dry, Intact, Normal Color, Warm Assessment and Plan - Assessment and Plan (Free Text) Assessment: 61 yo female with PMH of HTN, DM presents to ED with severe sepsis 2/2 to possible foot abscess s/p I&D, blood cultures positive for gram negative rods. Plan: 1. severe sepsis with hypotension - 2/2 foot abscess and bactremia - podiatry performed bedside I&D s/p day 2 - patient continues to have mild fever - blood culture gram negative tatum - pending wound culture showed gram negative rods - will cont meropenem until final cultures return - BP has improved - CT abd/pel showed no acute findings - foot Xray showed no acute finding - flu negative - procalcitonin elevated - LE duplex ordered, r/o DVT - ID and podiatry are following 2. elevated troponins - 2/2 CAD vs hypotension - most likely 2/2 to hypotension because trops trended down once hypotension resolved - Lipitor 20mg, ASA 81mg - started plavix per cardology - hold HTN meds including b blockers due to hypotension - echo showed EF of 62%, mild pulm HTN - consult cardiology, recommends cardiac cath after resolution of infection 3. DMII - controlled - cont iss - cont home med solique - fingersticks ACHS 4. HTN - controlled, - patient was hypotensive, improving - hold BP meds <Peter Martinez S - Last Filed: 01/25/17 20:28> Objective - Vital Signs/Intake and Output Vital Signs (last 24 hours): Temp Pulse Resp BP Pulse Ox 98.9 F 88 20 116/61 95 01/25/17 16:00 01/25/17 16:00 01/25/17 16:00 01/25/17 16:00 01/25/17 16:00 Intake and Output: 01/25/17 01/26/17 18:59 06:59 Intake Total 540 Balance 540 - Medications Medications: Current Medications Acetaminophen (Tylenol 325mg Tab) 650 mg PO Q4H PRN PRN Reason: Fever >100.4 F Last Admin: 01/23/17 15:30 Dose: 650 mg Aspirin (Ecotrin) 81 mg PO DAILY [facility] Last Admin: 01/25/17 10:38 Dose: 81 mg Atorvastatin Calcium (Lipitor) 20 mg PO HS [facility] Last Admin: 01/24/17 22:17 Dose: 20 mg Clopidogrel Bisulfate (Plavix) 75 mg PO DAILY [facility] Last Admin: 01/25/17 10:39 Dose: 75 mg Hydrochlorothiazide (Microzide) 12.5 mg PO DAILY [facility] Last Admin: 01/22/17 12:44 Dose: Not Given Meropenem 1g/NS 100mL IVPB (Meropenem 1g/Ns 100ml Ivpb) 1 gm in 100 mls @ 100 mls/hr IVPB Q8 [facility] PRN Reason: Protocol Stop: 01/30/17 12:45 Last Admin: 01/25/17 15:47 Dose: 100 mls/hr Insulin Human Regular (Humulin R High) 0 units SC ACHS [facility] PRN Reason: Protocol Last Admin: 01/25/17 17:14 Dose: 4 units Non-Formulary Medication (Insulin Glargine/Lixisenatide [Soliqua 100 Unit-33 Mcg /Ml Pen]) 60 units SQ DAILY [facility] Last Admin: 01/25/17 12:26 Dose: 60 units - Labs Labs: 01/25/17 06:00 01/25/17 06:00 Assessment and Plan - Assessment and Plan (Free Text) Plan: Pt seen and examined. Agree with above note and plan of resident. Labs and meds reviewed. Waiting for final BCx results. Pt to get L leg doppler US done to evaluate arteries. Spoke to . Will speak to ID about PO Abx. BP improved. Pt to continue with Plavix as out-pt.
[2017-01-25] MEDS: [UNRECOGNIZED DRUG - OTHER] SQ SCH (12:26)
--- NOTE | 2017-01-25 13:20 | CP.PCM.PN ---
<Joleen Cota - Last Filed: 01/25/17 15:36> Subjective - Date & Time of Evaluation Date of Evaluation: 01/25/17 Time of Evaluation: 10:10 - Subjective Subjective: Seen and examined at the bedside earlier this morning, the chart was reviewed. No acute overnight events reported. Patient OOB in Jewels chair, denies nausea, vomiting, or abdominal pain. No recent BM, denies constipation. No new complaints. Objective - Vital Signs/Intake and Output Vital Signs (last 24 hours): Temp Pulse Resp BP Pulse Ox 100.5 F H 84 18 120/53 L 94 L 01/25/17 08:00 01/25/17 08:00 01/25/17 08:00 01/25/17 08:00 01/25/17 08:00 Intake and Output: 01/25/17 01/25/17 06:59 18:59 Intake Total 240 180 Output Total 300 Balance -60 180 - Medications Medications: Current Medications Acetaminophen (Tylenol 325mg Tab) 650 mg PO Q4H PRN PRN Reason: Fever >100.4 F Last Admin: 01/23/17 15:30 Dose: 650 mg Aspirin (Ecotrin) 81 mg PO DAILY [facility] Last Admin: 01/25/17 10:38 Dose: 81 mg Atorvastatin Calcium (Lipitor) 20 mg PO HS [facility] Last Admin: 01/24/17 22:17 Dose: 20 mg Clopidogrel Bisulfate (Plavix) 75 mg PO DAILY [facility] Last Admin: 01/25/17 10:39 Dose: 75 mg Hydrochlorothiazide (Microzide) 12.5 mg PO DAILY [facility] Last Admin: 01/22/17 12:44 Dose: Not Given Meropenem 1g/NS 100mL IVPB (Meropenem 1g/Ns 100ml Ivpb) 1 gm in 100 mls @ 100 mls/hr IVPB Q8 [facility] PRN Reason: Protocol Stop: 01/30/17 12:45 Last Admin: 01/25/17 05:29 Dose: 100 mls/hr Insulin Human Regular (Humulin R High) 0 units SC ACHS [facility] PRN Reason: Protocol Last Admin: 01/25/17 12:24 Dose: Not Given Non-Formulary Medication (Insulin Glargine/Lixisenatide [Soliqua 100 Unit-33 Mcg /Ml Pen]) 60 units SQ DAILY [facility] Last Admin: 01/25/17 12:26 Dose: 60 units - Labs Labs: 01/25/17 06:00 01/25/17 06:00 - Constitutional Appears: No Acute Distress - Head Exam Head Exam: NORMOCEPHALIC - Eye Exam Eye Exam: Normal appearance. absent: Scleral icterus - ENT Exam ENT Exam: Mucous Membranes Moist - Neck Exam Neck Exam: Normal Inspection - Respiratory Exam Respiratory Exam: Clear to Ausculation Bilateral, NORMAL BREATHING PATTERN. absent: Respiratory Distress - Cardiovascular Exam Cardiovascular Exam: +S1, +S2 - GI/Abdominal Exam GI & Abdominal Exam: Soft, Normal Bowel Sounds. absent: Guarding, Tenderness, Rebound - Extremities Exam Extremities Exam: absent: Pedal Edema Additional comments: right foot dressing in place, jsut changed by podiatry - Neurological Exam Neurological Exam: Alert, Awake, Oriented x3 - Skin Skin Exam: Dry, Warm Assessment and Plan - Assessment and Plan (Free Text) Assessment: ASSESSMENT: Sepsis w/ hypotension, leukocytosis improving Right Toe ulcer s/p I&D, culture (+) Klebsiella Elevated LFT, differential to consider is medication induced, hepatic congestion , infection hepatitis Blood cultures (+) Klebsiella Abdominal Pain resolved, s/p ct scan, no acute intrabdominal or pelvic findings Peripheral Neuropathy Elevated troponins DM HTN PLAN: on IV antibiotics continue diet as tolerated as per ID/ cardiology podiatry FU hepatitis panel trend lft Patient was recommended elective outpatient colonoscopy after treatment of infection. Seen and discussed w/ Dr. Woodard. <Asaf Woodard V - Last Filed: 01/25/17 21:17> Objective - Vital Signs/Intake and Output Vital Signs (last 24 hours): Temp Pulse Resp BP Pulse Ox 98.9 F 88 20 116/61 95 01/25/17 16:00 01/25/17 16:00 01/25/17 16:00 01/25/17 16:00 01/25/17 16:00 Intake and Output: 01/25/17 01/26/17 18:59 06:59 Intake Total 540 Balance 540 - Medications Medications: Current Medications Acetaminophen (Tylenol 325mg Tab) 650 mg PO Q4H PRN PRN Reason: Fever >100.4 F Last Admin: 01/23/17 15:30 Dose: 650 mg Aspirin (Ecotrin) 81 mg PO DAILY [facility] Last Admin: 01/25/17 10:38 Dose: 81 mg Atorvastatin Calcium (Lipitor) 20 mg PO HS [facility] Last Admin: 01/24/17 22:17 Dose: 20 mg Clopidogrel Bisulfate (Plavix) 75 mg PO DAILY [facility] Last Admin: 01/25/17 10:39 Dose: 75 mg Hydrochlorothiazide (Microzide) 12.5 mg PO DAILY [facility] Last Admin: 01/22/17 12:44 Dose: Not Given Meropenem 1g/NS 100mL IVPB (Meropenem 1g/Ns 100ml Ivpb) 1 gm in 100 mls @ 100 mls/hr IVPB Q8 [facility] PRN Reason: Protocol Stop: 01/30/17 12:45 Last Admin: 01/25/17 15:47 Dose: 100 mls/hr Insulin Human Regular (Humulin R High) 0 units SC ACHS [facility] PRN Reason: Protocol Last Admin: 01/25/17 17:14 Dose: 4 units Non-Formulary Medication (Insulin Glargine/Lixisenatide [Soliqua 100 Unit-33 Mcg /Ml Pen]) 60 units SQ DAILY [facility] Last Admin: 01/25/17 12:26 Dose: 60 units - Labs Labs: 01/25/17 06:00 01/25/17 06:00 Attending/Attestation - Attestation I have personally seen and examined this patient.: Yes I have fully participated in the care of the patient.: Yes I have reviewed all pertinent clinical information, including history, physical exam and plan: Yes Notes (Text): This is an addendum to GI progress report dictated by Joleen Cota APN.The patient was seen and examined earlier. Medical records, lab studies, imagings were reviewed. Last 24 hours events reviewed. Agreed with the above treatment plan as outlined in Joleen Cota APN's notes the with the addition of the following On examination abdomen soft no tenderness An IV antibiotics Mildly elevated transaminases could be drug-induced need follow-up Patient has history of breath that is a common bile duct status post a spyglass examination at [facility] few years back Elective colonoscopy 01/25/17 21:16
--- NOTE | 2017-01-25 16:26 | US ---
PROCEDURE: Lower extremity MICHAEL exam HISTORY: Peripheral vascular disease with pain and ulceration. Diabetes PHYSICIAN(S): Jose Schwartz MD. FINDINGS: The resting MICHAEL's are normal: right, 1.14and left, 1.14. The brachial systolic pressures are symmetric. The high thigh pressures and waveforms are relatively normal. The calf PVR waveforms augment normally. No significant gradients are noted across the thighs. The ankle and metatarsal waveforms are relatively normal and symmetric. No significant pressure gradients are noted across the lower legs. IMPRESSION: 1. Normal MICHAEL and PVR examination at rest.
--- NOTE | 2017-01-25 21:56 | PN ---
DATE OF SERVICE: 01/25/2017 SUBJECTIVE: The patient is in bed, in no acute distress. The patient was seen earlier this morning. OBJECTIVE: VITAL SIGNS: Still with a fever of 100.5, blood pressure is 120/50, respiratory rate of 18. HEENT: Unremarkable. NECK: Supple. LUNGS: Decreased breath sounds. HEART: Normal S1 and S2. ABDOMEN: Soft. LABORATORY DATA: Laboratory examination reveals a white count of 5.6, hemoglobin of 9. BUN and creatinine are noted. Urinalysis is reviewed. Serology is negative for influenza. Blood cultures are positive for Klebsiella oxytoca and sensitivity is pending. The second blood culture is also positive for Klebsiella oxytoca. It is pansensitive including sensitive to ceftriaxone. The foot culture is Klebsiella oxytoca also and a coag-negative staph. It is pansensitive Klebsiella in the foot. Review of orders reveals the patient to be on meropenem. progress note from today is reviewed. ASSESSMENT AND PLAN: This is a 61-year-old with severe sepsis with Klebsiella bacteremia secondary to Klebsiella from the foot, most likely will need further vascular intervention and podiatric interventions since the organism is pansensitive; the patient continues to have low-grade fever; a surgical intervention with podiatry for debridement and/or drainage of abscess; will need a CAT scan imaging of the foot. Podiatry note is reviewed. MRI of the foot should be done and we will discuss with Dr. Gutierrez. Braulio Doyle MD
[2017-01-26] MEDS: Meropenem 1g/NS 100mL IVPB 1 GM/100 ML PIGGYBACK IVPB SCH ×3 (06:04→21:11)
[2017-01-26] MEDS: Insulin Reg-HIGH-Coverage SC SCH ×4 (08:00→21:27)
[2017-01-26] MEDS: [UNRECOGNIZED DRUG - OTHER] SQ SCH (10:14)
--- NOTE | 2017-01-26 10:26 | CP.PCM.PN ---
<Joleen Cota - Last Filed: 01/26/17 10:24> Subjective - Date & Time of Evaluation Date of Evaluation: 01/26/17 Time of Evaluation: 10:21 - Subjective Subjective: S&E at bedside, no acute overnight events reported. Denies N/V or abdominal pain. No diarrhea, fever or chills. Awaiting for discharge orders. Objective - Vital Signs/Intake and Output Vital Signs (last 24 hours): Temp Pulse Resp BP Pulse Ox 98.3 F 68 20 119/80 95 01/26/17 08:50 01/26/17 08:50 01/26/17 08:50 01/26/17 08:50 01/26/17 08:50 Intake and Output: 01/26/17 01/26/17 06:59 18:59 Intake Total 1020 Output Total 100 Balance 920 - Medications Medications: Current Medications Acetaminophen (Tylenol 325mg Tab) 650 mg PO Q4H PRN PRN Reason: Fever >100.4 F Last Admin: 01/23/17 15:30 Dose: 650 mg Aspirin (Ecotrin) 81 mg PO DAILY ON LICENSE OF [facility] Last Admin: 01/26/17 10:14 Dose: 81 mg Atorvastatin Calcium (Lipitor) 20 mg PO HS ON LICENSE OF [facility] Last Admin: 01/25/17 21:17 Dose: Not Given Clopidogrel Bisulfate (Plavix) 75 mg PO DAILY ON [facility] OF [facility] Last Admin: 01/26/17 10:14 Dose: 75 mg Hydrochlorothiazide (Microzide) 12.5 mg PO DAILY ON [facility] OF [facility] Last Admin: 01/22/17 12:44 Dose: Not Given Meropenem 1g/NS 100mL IVPB (Meropenem 1g/Ns 100ml Ivpb) 1 gm in 100 mls @ 100 mls/hr IVPB Q8 [facility]E PRN Reason: Protocol Stop: 01/30/17 12:45 Last Admin: 01/26/17 06:04 Dose: 100 mls/hr Insulin Human Regular (Humulin R High) 0 units SC ACHS [facility] PRN Reason: Protocol Last Admin: 01/26/17 08:00 Dose: Not Given Non-Formulary Medication (Insulin Glargine/Lixisenatide [Soliqua 100 Unit-33 Mcg /Ml Pen]) 60 units SQ DAILY ON [facility] OF [facility] Last Admin: 01/26/17 10:14 Dose: 60 units - Labs Labs: 01/25/17 06:00 01/25/17 06:00 - Constitutional Appears: No Acute Distress - Eye Exam Eye Exam: Normal appearance. absent: Scleral icterus - ENT Exam ENT Exam: Mucous Membranes Moist - Neck Exam Neck Exam: Normal Inspection - Respiratory Exam Respiratory Exam: NORMAL BREATHING PATTERN. absent: Respiratory Distress - Cardiovascular Exam Cardiovascular Exam: +S1, +S2 - GI/Abdominal Exam GI & Abdominal Exam: Soft, Normal Bowel Sounds. absent: Guarding, Tenderness, Rebound - Extremities Exam Extremities Exam: Normal Capillary Refill. absent: Calf Tenderness Additional comments: right foot dressing in place, had doppler of lower ext, no acute findings. - Neurological Exam Neurological Exam: Alert, Awake, Oriented x3 Assessment and Plan - Assessment and Plan (Free Text) Assessment: ASSESSMENT: Sepsis w/ hypotension, leukocytosis improving Right Toe ulcer s/p I&D, culture (+) Klebsiella Elevated LFT, differential to consider is medication induced, hepatic congestion , infection hepatitis Blood cultures (+) Klebsiella Abdominal Pain resolved, s/p ct scan, no acute intrabdominal or pelvic findings Peripheral Neuropathy Elevated troponins DM HTN PLAN: on IV antibiotics as per ID continue diet as tolerated podiatry FU hepatitis panel negative trend lft Patient was recommended elective outpatient colonoscopy after treatment of infection and FU lft upon discharge, maybe medication related. Discussed w/ patient. Seen and discussed w/ Dr. Woodard. <Asaf Woodard V - Last Filed: 01/26/17 22:40> Objective - Vital Signs/Intake and Output Vital Signs (last 24 hours): Temp Pulse Resp BP Pulse Ox 98.3 F 68 20 119/80 95 01/26/17 08:50 01/26/17 08:50 01/26/17 08:50 01/26/17 08:50 01/26/17 08:50 Intake and Output: 01/26/17 01/27/17 18:59 06:59 Intake Total 1080 Balance 1080 - Medications Medications: Current Medications Acetaminophen (Tylenol 325mg Tab) 650 mg PO Q4H PRN PRN Reason: Fever >100.4 F Last Admin: 01/23/17 15:30 Dose: 650 mg Aspirin (Ecotrin) 81 mg PO DAILY [facility] Last Admin: 01/26/17 10:14 Dose: 81 mg Atorvastatin Calcium (Lipitor) 20 mg PO HS ON [facility] Last Admin: 01/26/17 21:11 Dose: 20 mg Clopidogrel Bisulfate (Plavix) 75 mg PO DAILY [facility] Last Admin: 01/26/17 10:14 Dose: 75 mg Hydrochlorothiazide (Microzide) 12.5 mg PO DAILY [facility] Last Admin: 01/22/17 12:44 Dose: Not Given Meropenem 1g/NS 100mL IVPB (Meropenem 1g/Ns 100ml Ivpb) 1 gm in 100 mls @ 100 mls/hr IVPB Q8 [facility] PRN Reason: Protocol Stop: 01/30/17 12:45 Last Admin: 01/26/17 21:11 Dose: 100 mls/hr Insulin Human Regular (Humulin R High) 0 units SC ACHS [facility] PRN Reason: Protocol Last Admin: 01/26/17 21:27 Dose: Not Given Mupirocin (Bactroban Ointment) 0 gm TOP DAILY [facility] Last Admin: 01/26/17 12:22 Dose: 1 applic Non-Formulary Medication (Insulin Glargine/Lixisenatide [Soliqua 100 Unit-33 Mcg /Ml Pen]) 60 units SQ DAILY [facility] Last Admin: 01/26/17 10:14 Dose: 60 units - Labs Labs: 01/25/17 06:00 01/25/17 06:00 Attending/Attestation - Attestation I have personally seen and examined this patient.: Yes I have fully participated in the care of the patient.: Yes I have reviewed all pertinent clinical information, including history, physical exam and plan: Yes Notes (Text): This is an addendum to GI progress report dictated by Joleen Cota APN.The patient was seen and examined earlier. Medical records, lab studies, imagings were reviewed. Last 24 hours events reviewed. Agreed with the above treatment plan as outlined in Joleen Cota APN's notes the with the addition of the following on examination abdomen soft no tenderness Continue antibiotics as per ID Capsular bacteremia with foot infection Elective colonoscopy Discussed with the patient at length 01/26/17 22:39
--- NOTE | 2017-01-26 12:39 | CP.PCM.PN ---
<Anatoliy Munson - Last Filed: 01/26/17 12:33> Subjective - Date & Time of Evaluation Date of Evaluation: 01/26/17 Time of Evaluation: 10:00 - Subjective Subjective: 61 year old female with PMH of DM, peripheral neuropathy, HTN, and hyperlipidemia was seen at bedside for right plantar hallux. She is seen resting comfortably in chair NAD, and AA0x3. Dressing is clean, dry, and intact. Patient reports no acute overnight events. Patient denies pain today. She denies n/v/sob/cp/f or d. No other pedal complaints at this time. Objective - Vital Signs/Intake and Output Vital Signs (last 24 hours): Temp Pulse Resp BP Pulse Ox 98.3 F 68 20 119/80 95 01/26/17 08:50 01/26/17 08:50 01/26/17 08:50 01/26/17 08:50 01/26/17 08:50 Intake and Output: 01/26/17 01/26/17 06:59 18:59 Intake Total 1020 Output Total 100 Balance 920 - Medications Medications: Current Medications Acetaminophen (Tylenol 325mg Tab) 650 mg PO Q4H PRN PRN Reason: Fever >100.4 F Last Admin: 01/23/17 15:30 Dose: 650 mg Aspirin (Ecotrin) 81 mg PO DAILY [facility] Last Admin: 01/26/17 10:14 Dose: 81 mg Atorvastatin Calcium (Lipitor) 20 mg PO HS [facility] Last Admin: 01/25/17 21:17 Dose: Not Given Clopidogrel Bisulfate (Plavix) 75 mg PO DAILY [facility] Last Admin: 01/26/17 10:14 Dose: 75 mg Hydrochlorothiazide (Microzide) 12.5 mg PO DAILY [facility] Last Admin: 01/22/17 12:44 Dose: Not Given Meropenem 1g/NS 100mL IVPB (Meropenem 1g/Ns 100ml Ivpb) 1 gm in 100 mls @ 100 mls/hr IVPB Q8 [facility] PRN Reason: Protocol Stop: 01/30/17 12:45 Last Admin: 01/26/17 06:04 Dose: 100 mls/hr Insulin Human Regular (Humulin R High) 0 units SC ACHS [facility] PRN Reason: Protocol Last Admin: 01/26/17 12:22 Dose: 4 units Mupirocin (Bactroban Ointment) 0 gm TOP DAILY [facility] Last Admin: 01/26/17 12:22 Dose: 1 applic Non-Formulary Medication (Insulin Glargine/Lixisenatide [Soliqua 100 Unit-33 Mcg /Ml Pen]) 60 units SQ DAILY [facility] Last Admin: 01/26/17 10:14 Dose: 60 units - Labs Labs: 01/25/17 06:00 01/25/17 06:00 - Constitutional Appears: Well, Non-toxic, Toxic - Extremities Exam Additional comments: Vasc: DP pulses 1/4 bilaterally, PT pulses 2/4 bilaterally, 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 No active drainage, no odor , no probe to bone, no undermining, no tunneling, no fluctanance, no abscess noted. - Neurological Exam Neurological Exam: Alert, Awake, Oriented x3 - Psychiatric Exam Psychiatric exam: Normal Affect, Normal Mood Assessment and Plan - Assessment and Plan (Free Text) Assessment: 61 year old female with PMH of DM, peripheral neuropathy, HTN, and hyperlipidemia was seen for ulceration of right plantar hallux and 3 day s/p I and D of the right plantar hallux. Plan: Patient examined and evaluated Charts, labs, vitals reviewed (afebrile, WBC=5.6) Discussed plan in detail with attending Dr. Gutierrez Ulceration cleansed with saline and optifoam applied Patient ulceration is no longer draining, will discontinue maxosorb dressing Ordered Mupricin to be applied with dressing change with optifoam. X-rays shows no OM, bone normal, and no fracture Patient does not need MRI at this time Wound culture results- Klebsiella Oxytoca ID recs appreciated Patient may WBAT in forefoot offloading shoe to the right Will f/u in wound care with Dr. Gutierrez as scheduled for 01/30/17 Patient is stable per podiatry for discharge Will continue local wound care and follow while in house <Charlie Gutierrez - Last Filed: 01/26/17 18:18> Objective - Vital Signs/Intake and Output Vital Signs (last 24 hours): Temp Pulse Resp BP Pulse Ox 98.3 F 68 20 119/80 95 01/26/17 08:50 01/26/17 08:50 01/26/17 08:50 01/26/17 08:50 01/26/17 08:50 Intake and Output: 01/26/17 01/26/17 06:59 18:59 Intake Total 1020 1080 Output Total 100 Balance 920 1080 - Medications Medications: Current Medications Acetaminophen (Tylenol 325mg Tab) 650 mg PO Q4H PRN PRN Reason: Fever >100.4 F Last Admin: 01/23/17 15:30 Dose: 650 mg Aspirin (Ecotrin) 81 mg PO DAILY [facility] Last Admin: 01/26/17 10:14 Dose: 81 mg Atorvastatin Calcium (Lipitor) 20 mg PO HS [facility] Last Admin: 01/25/17 21:17 Dose: Not Given Clopidogrel Bisulfate (Plavix) 75 mg PO DAILY [facility] Last Admin: 01/26/17 10:14 Dose: 75 mg Hydrochlorothiazide (Microzide) 12.5 mg PO DAILY [facility] Last Admin: 01/22/17 12:44 Dose: Not Given Meropenem 1g/NS 100mL IVPB (Meropenem 1g/Ns 100ml Ivpb) 1 gm in 100 mls @ 100 mls/hr IVPB Q8 [facility] PRN Reason: Protocol Stop: 01/30/17 12:45 Last Admin: 01/26/17 14:12 Dose: 100 mls/hr Insulin Human Regular (Humulin R High) 0 units SC ACHS [facility] PRN Reason: Protocol Last Admin: 01/26/17 17:24 Dose: 4 units Mupirocin (Bactroban Ointment) 0 gm TOP DAILY [facility] Last Admin: 01/26/17 12:22 Dose: 1 applic Non-Formulary Medication (Insulin Glargine/Lixisenatide [Soliqua 100 Unit-33 Mcg /Ml Pen]) 60 units SQ DAILY [facility] Last Admin: 01/26/17 10:14 Dose: 60 units - Labs Labs: 01/25/17 06:00 01/25/17 06:00 Attending/Attestation - Attestation I have personally seen and examined this patient.: Yes I have fully participated in the care of the patient.: Yes I have reviewed all pertinent clinical information, including history, physical exam and plan: Yes
--- NOTE | 2017-01-26 19:47 | PN ---
CARDIOLOGY FOLLOWUP DATE: 01/26/2017 SUBJECTIVE: The patient is chest pain free. PHYSICAL EXAMINATION: VITAL SIGNS: Blood pressure is 119/80 and heart rates in the 60s. NECK: Negative JVD. LUNGS: Without rales. HEART: S1 and S2. EXTREMITIES: Bandage in the lower extremities. LABORATORY DATA: Hemoglobin is 9.4 and white count is normal. Glucose is 218. IMPRESSION: 1. Cellulitis versus osteomyelitis of the lower extremity. 2. Gram-negative bacteremia. 3. High probability for coronary artery disease. 4. Diabetes mellitus. 5. Hypertension. 6. Hypercholesterolemia. Given these findings, the patient is scheduled for cardiac catheterization on Monday, if her infection is well-controlled. Jose Barry MD
--- NOTE | 2017-01-26 20:20 | PN ---
DATE: 01/26/2017 SUBJECTIVE: The patient is seen in bed in no acute distress. She was seen earlier today. She is anxious about going home. PHYSICAL EXAMINATION VITAL SIGNS: Temperature is 98, T-max yesterday was 100.5, blood pressure is 119/80, respiratory rate of 16. HEENT: Unremarkable. NECK: Supple. LUNGS: Have decreased breath sounds. HEART: Normal S1, S2. ABDOMEN: Soft, nontender. LABORATORY EXAMINATION: Reveals a white count of 5.6, hemoglobin of 9. Chemistries are noted. The patient's creatinine is 0.7 and urinalysis is noted and serology is noted. The blood cultures are positive for Klebsiella Oxytoca, pansensitive Klebsiella, and urine cultures, lactobacillus, and note the foot culture has Klebsiella Oxytoca and also pansensitive. The patient is anxious about going home. I have explained to her that further workup is required. ASSESSMENT/PLAN This is a 61-year-old female with severe sepsis with Klebsiella bacteremia secondary Klebsiella from the foot, which is pansensitive. I have discussed with who agrees for an MRI and to rule out a collection and/or osteomyelitis. The patient currently on meropenem. We will continue present course, pending the MRI results. We will also order sedimentation rate and C-reactive protein. We will make further recommendations.. Braulio Doyle MD
[2017-01-27] MEDS: Meropenem 1g/NS 100mL IVPB 1 GM/100 ML PIGGYBACK IVPB SCH (06:26)
[2017-01-27] MEDS: Insulin Reg-HIGH-Coverage SC SCH ×2 (08:23→12:28)
[2017-01-27 08:41] VITALS: BP 128/65; PULSE 56; RESP 20; TEMP 98.4; O2SAT 96
--- NOTE | 2017-01-27 08:59 | MRI ---
MRI right forefoot History: Great toe ulcer. Diabetes. Comparison: X-ray dated 01/23/2017 Technique: Multi-echo multiplanar sequences were performed through the right forefoot without the use of intravenous contrast. Findings: Soft tissue ulceration at the level of the 1st distal phalanx. Signal abnormality seen within the adjacent 1st distal phalanx demonstrating a patchy increased STIR signal with associated minimal patchy decreased T1 signal most prominent at the level of the tuft. This is concerning for early acute and or developing acute osteomyelitic changes. Clinical correlation. Correlation with a contrast-enhanced study and or 3 phase bone scan may be helpful if clinically indicated. Moderate hallux valgus deformity with degenerative changes noted at the 1st MTP as well as the metatarsus sesamoid joint spaces. Degenerative changes in the midfoot with some bony spurring noted at the dorsal aspect of the talonavicular joint space. Minimal subchondral cyst formation noted at the lateral cuboid bone. Minimal patchy nonspecific reactive bone marrow edema seen within the 4th metatarsal bone as well as the 2nd proximal phalanx. Thickening of the plantar fascia near its insertion on the inferior calcaneus measuring up to 1.2 centimeters with adjacent bony spurring and mild reactive edema suggestive for a moderate plantar fascitis. At the level of the metatarsal bases, within the volar aspect of the plantar fascia, there is focal thickening of the plantar fascia measuring 1.5 x 0.5 centimeter seen on series 4, image 28 and 1.4 x 0.8 centimeters seen on series 4, image 27 suggestive for plantar fibromatosis and or plantar fibromas. Clinical correlation. Trace ankle joint effusion. Mild increased signal seen within the visualized Lisfranc ligament which may represent a low grade sprain and or minimal partial tearing. Clinical correlation. Prominent reticulation and edema seen within the dorsal aspect of the foot. Impression: 1. Soft tissue ulceration at the level of the 1st distal phalanx. Signal abnormality seen within the adjacent 1st distal phalanx demonstrating a patchy increased STIR signal with associated minimal patchy decreased T1 signal most prominent at the level of the tuft. This is concerning for early acute and or developing acute osteomyelitic changes. Clinical correlation. Correlation with a contrast-enhanced study and or 3 phase bone scan may be helpful if clinically indicated. 2. Moderate hallux valgus deformity with degenerative changes noted at the 1st MTP as well as the metatarsus sesamoid joint spaces. 3. Degenerative changes in the midfoot with some bony spurring noted at the dorsal aspect of the talonavicular joint space. Minimal subchondral cyst formation noted at the lateral cuboid bone. 4. Minimal patchy nonspecific reactive bone marrow edema seen within the 4th metatarsal bone as well as the 2nd proximal phalanx. 5. Thickening of the plantar fascia near its insertion on the inferior calcaneus measuring up to 1.2 centimeters with adjacent bony spurring and mild reactive edema suggestive for a moderate plantar fascitis. 6. At the level of the metatarsal bases, within the volar aspect of the plantar fascia, there is focal thickening of the plantar fascia measuring 1.5 x 0.5 centimeter seen on series 4, image 28 and 1.4 x 0.8 centimeters seen on series 4, image 27 suggestive for plantar fibromatosis and or plantar fibromas. Clinical correlation. 7. Trace ankle joint effusion. 8. Mild increased signal seen within the visualized Lisfranc ligament which may represent a low grade sprain and or minimal partial tearing. Clinical correlation. 9. Prominent reticulation and edema seen within the dorsal aspect of the foot.
[2017-01-27] MEDS: [UNRECOGNIZED DRUG - OTHER] SQ SCH (09:58)
--- NOTE | 2017-01-27 10:20 | CP.PCM.PN ---
<Anatoliy Munson - Last Filed: 01/27/17 12:13> Subjective - Date & Time of Evaluation Date of Evaluation: 01/27/17 Time of Evaluation: 09:20 - Subjective Subjective: Podiatry Progress note for Dr. Gutierrez 61 year old female with PMH of DM, peripheral neuropathy, HTN, and hyperlipidemia was seen at bedside for s/p I and D of right plantar hallux with ulceration present. She is seen resting comfortably in chair NAD, and AA0x3 with and daughter at bedside. She reports she is going to go home today. Dressing is clean, dry, and intact. Patient reports no acute overnight events. Patient denies pain today. She denies n/v/sob/cp/f or d. No other pedal complaints at this time. Objective - Vital Signs/Intake and Output Vital Signs (last 24 hours): Temp Pulse Resp BP Pulse Ox 98.4 F 56 L 20 128/65 96 01/27/17 07:00 01/27/17 07:00 01/27/17 07:00 01/27/17 07:00 01/27/17 07:00 Intake and Output: 01/27/17 01/27/17 06:59 18:59 Intake Total 360 Balance 360 - Medications Medications: Current Medications Acetaminophen (Tylenol 325mg Tab) 650 mg PO Q4H PRN PRN Reason: Fever >100.4 F Last Admin: 01/27/17 01:51 Dose: 650 mg Aspirin (Ecotrin) 81 mg PO DAILY [facility] Last Admin: 01/27/17 09:58 Dose: 81 mg Atorvastatin Calcium (Lipitor) 20 mg PO HS [facility] Last Admin: 01/26/17 21:11 Dose: 20 mg Clopidogrel Bisulfate (Plavix) 75 mg PO DAILY [facility] Last Admin: 01/27/17 09:58 Dose: 75 mg Hydrochlorothiazide (Microzide) 12.5 mg PO DAILY [facility] Last Admin: 01/27/17 09:58 Dose: 12.5 mg Meropenem 1g/NS 100mL IVPB (Meropenem 1g/Ns 100ml Ivpb) 1 gm in 100 mls @ 100 mls/hr IVPB Q8 [facility] PRN Reason: Protocol Stop: 01/30/17 12:45 Last Admin: 01/27/17 06:26 Dose: 100 mls/hr Insulin Human Regular (Humulin R High) 0 units SC ACHS [facility] PRN Reason: Protocol Last Admin: 01/27/17 08:23 Dose: Not Given Mupirocin (Bactroban Ointment) 0 gm TOP DAILY [facility] Last Admin: 01/27/17 10:04 Dose: 1 applic Non-Formulary Medication (Insulin Glargine/Lixisenatide [Soliqua 100 Unit-33 Mcg /Ml Pen]) 60 units SQ DAILY [facility] Last Admin: 01/27/17 09:58 Dose: 60 units - Labs Labs: 01/25/17 06:00 01/25/17 06:00 - Constitutional Appears: Well, Non-toxic, No Acute Distress - Extremities Exam Additional comments: Vasc: DP pulses 1/4 bilaterally, PT pulses 2/4 bilaterally, 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 No active drainage, no odor, no probe to bone, no undermining, no tunneling, no fluctanance, no abscess noted. - Neurological Exam Neurological Exam: Alert, Awake, Oriented x3 - Psychiatric Exam Psychiatric exam: Normal Affect, Normal Mood Assessment and Plan - Assessment and Plan (Free Text) Assessment: 61 year old female with PMH of DM, peripheral neuropathy, HTN, and hyperlipidemia was seen for ulceration of right plantar hallux and 4 day s/p I and D of the right plantar hallux abscess. Plan: Patient examined and evaluated Charts, labs, vitals reviewed (afebrile, WBC=5.6 on 01/25/17) Discussed plan in detail with attending Dr. Gutierrez Ulceration cleansed with saline, applied with mupricon and optifoam applied X-rays shows no OM, bone normal, and no fracture ESR=60 MRI results- shows at the "right 1st distal phalanx with concerning for early acute and or developing acute osteomyelitic changes. Correlation with a contrast -enhanced study and or 3 phase bone scan may be helpful if clinically indicated " MRI results not clinicially correlated. Ulceration is located at plantarly at the level proximally at the proximal hallux. Low suspicion for OM. Will closely monitor patient's ulceration. Wound culture results- Klebsiella Oxytoca C/W abx per ID Patient may WBAT in forefoot offloading shoe to the right Patient is stable per podiatry for discharge Will f/u in wound care with Dr. Gutierrez within 1 week Instructed to change dressing daily with Bactroban and optifoam once discharge <Charlie Gutierrez - Last Filed: 01/28/17 08:28> Objective - Vital Signs/Intake and Output Vital Signs (last 24 hours): Temp Pulse Resp BP Pulse Ox 98.4 F 56 L 20 128/65 96 01/27/17 07:00 01/27/17 07:00 01/27/17 07:00 01/27/17 07:00 01/27/17 07:00 - Labs Labs: 01/25/17 06:00 01/25/17 06:00 Attending/Attestation - Attestation I have personally seen and examined this patient.: Yes I have fully participated in the care of the patient.: Yes I have reviewed all pertinent clinical information, including history, physical exam and plan: Yes
--- NOTE | 2017-01-27 12:09 | PN ---
DATE: 01/27/2017 SUBJECTIVE: The patient seen this morning. She is anxious about being discharged and overall she has done well. No fevers last night. PHYSICAL EXAMINATION: VITAL SIGNS: Temperature is 98, blood pressure is 120/60, respiratory rate of 20, heart rate of 56. HEENT: Unremarkable. NECK: Supple. LUNGS: Decreased breath sounds. HEART: Normal S1, S2. ABDOMEN: Soft, nontender. LABORATORY EXAMINATION: Reveals a white count of 5.6, hemoglobin of 9, platelets of 123. Chemistries reveals a creatinine of 0.7. Urinalysis is noted. Blood cultures are positive for Klebsiella. Foot culture is positive for Klebsiella. Review of orders reveals the patient to be on meropenem. ASSESSMENT AND PLAN: This is a 61-year-old female with severe sepsis Klebsiella bacteremia secondary to Klebsiella from the foot culture which is pansensitive. Awaiting for MRI to rule out underlying osteomyelitis and/or collection. If the MRI is negative, the patient does have an elevated sedimentation rate of 60, concerned about that. If the MRI is negative, may switch to p.o. Cipro and p.o. Flagyl that complete 7 to 10 days of antibiotics if the MRI is positive. We will need intravenous antibiotics, ceftriaxone 2 g once daily for 4 to 6 weeks with p.o. Flagyl. We will follow with you. Braulio Doyle MD
--- NOTE | 2017-01-27 14:33 | PN ---
DATE: 01/27/2017 SUBJECTIVE: The patient is asymptomatic. The patient remains afebrile. PHYSICAL EXAMINATION: VITAL SIGNS: Blood pressure is 128/65. NECK: Negative JVD. LUNGS: Without rales. HEART: Reveals S1 and S2. EXTREMITIES: The lower extremity is still bandaged. LABORATORY DATA: Hemoglobin is 9.4. Chemistries, glucose is 130. DIAGNOSTIC DATA: The MRI is pending of the lower extremity. IMPRESSION 1. Cellulitis versus osteomyelitis. 2. High probability for coronary artery disease. 3. Diabetes mellitus. 4. Hypertension. 5. Hypercholesterolemia. PLAN: Given these findings, the patient has been treated with antibiotics and likely be discharged today. We will defer cardiac catheterization for 1 week to make sure that her infection is resolved. I have discussed this with the patient and family in detail. Jose Barry MD
--- NOTE | 2017-01-27 23:49 | CP.PCM.PN ---
Subjective - Date & Time of Evaluation Date of Evaluation: 01/26/17 Time of Evaluation: 18:00 - Subjective Subjective: No complaints. No pain. right foot MRI done today. results awaited to r/o osteomyelitis. Gram negative sepsis resolved. Objective - Vital Signs/Intake and Output Vital Signs (last 24 hours): Temp Pulse Resp BP Pulse Ox 98.4 F 56 L 20 128/65 96 01/27/17 07:00 01/27/17 07:00 01/27/17 07:00 01/27/17 07:00 01/27/17 07:00 Intake and Output: 01/27/17 01/28/17 18:59 06:59 Intake Total 480 Balance 480 - Labs Labs: 01/25/17 06:00 01/25/17 06:00 - Constitutional Appears: Non-toxic - Head Exam Head Exam: ATRAUMATIC, NORMAL INSPECTION, NORMOCEPHALIC - Eye Exam Eye Exam: Normal appearance Pupil Exam: NORMAL ACCOMODATION - ENT Exam ENT Exam: Mucous Membranes Moist - Neck Exam Neck Exam: Normal Inspection - Respiratory Exam Respiratory Exam: Clear to Ausculation Bilateral, NORMAL BREATHING PATTERN - Cardiovascular Exam Cardiovascular Exam: REGULAR RHYTHM, +S1, +S2 - GI/Abdominal Exam GI & Abdominal Exam: Soft, Normal Bowel Sounds - Back Exam Back Exam: NORMAL INSPECTION - Neurological Exam Neurological Exam: Alert, Awake, Oriented x3 - Psychiatric Exam Psychiatric exam: Normal Affect - Skin Skin Exam: Normal Color, Warm Assessment and Plan - Assessment and Plan (Free Text) Assessment: 1. right foot cellulitis. s/p debridement. MRI of foot done today r/o amandateo , results awaited. 2. leukocytosis resolved. 3. Anemia : hb/Hct stable. 4. DM II : sugars controlled. 5. Sepsis resolved.
--- NOTE | 2017-01-27 23:56 | CP.PCM.DIS ---
Provider - Provider Date of Admission: 01/23/17 06:21 Attending physician: Peter Martinez MD Time Spent in preparation of Discharge (in minutes): 50 Diagnosis - Discharge Diagnosis (1) Sepsis Status: Acute (2) Leukocytosis Status: Acute (3) Anemia Status: Acute (4) Cellulitis of toe of right foot Status: Acute (5) Diabetes Status: Acute Hospital Course - Lab Results Lab Results: Micro Results 01/23/17 10:28 Foot - Right Gram Stain - Final 01/23/17 10:28 Foot - Right Wound Culture - Final Klebsiella Oxytoca Coagulase Neg Staphylococcus Most Recent Lab Values WBC 5.6 10^3/ul (4.5-11.0) D 01/25/17 06:00 RBC 3.19 10^6/uL (3.5-6.1) L 01/25/17 06:00 Hgb 9.4 g/dL (12.0-16.0) L 01/25/17 06:00 Hct 27.6 % (36.0-48.0) L 01/25/17 06:00 MCV 86.5 fl (80.0-105.0) 01/25/17 06:00 MCH 29.5 pg (25.0-35.0) 01/25/17 06:00 MCHC 34.1 g/dl (31.0-37.0) 01/25/17 06:00 RDW 13.2 % (11.5-14.5) 01/25/17 06:00 Plt Count 123 10^3/uL (120.0-450.0) 01/25/17 06:00 MPV 10.3 fl (7.0-11.0) 01/25/17 06:00 Gran % 93.9 % (50.0-68.0) H 01/22/17 07:35 Lymph % (Auto) 2.7 % (22.0-35.0) L 01/22/17 07:35 [place] % (Auto) 3.3 % (1.0-6.0) 01/22/17 07:35 Eos % (Auto) 0.0 % (1.5-5.0) L 01/22/17 07:35 Baso % (Auto) 0.1 % (0.0-3.0) 01/22/17 07:35 Gran # 16.67 (1.4-6.5) H 01/22/17 07:35 Lymph # 0.5 (1.2-3.4) L 01/22/17 07:35 [place] # 0.6 (0.1-0.6) 01/22/17 07:35 Eos # 0.0 (0.0-0.7) 01/22/17 07:35 Baso # 0.01 K/mm3 (0.0-2.0) 01/22/17 07:35 Neutrophils % (Manual) 86 % (50.0-70.0) H 01/22/17 07:35 Band Neutrophils % 8 % (0-2) H 01/22/17 07:35 Lymphocytes % (Manual) 2 % (22.0-35.0) L 01/22/17 07:35 Monocytes % (Manual) 4 % (1.0-6.0) 01/22/17 07:35 ESR 60 mm/hr (0.0-20.0) H 01/27/17 07:10 pO2 43 mm/Hg (30-55) 01/23/17 05:26 VBG pH 7.30 (7.32-7.43) L 01/23/17 05:26 VBG pCO2 49.0 (40-60) 01/23/17 05:26 VBG HCO3 24.1 mmol/l (21-28) 01/23/17 05:26 VBG Total CO2 25.6 mmol.L (22-28) 01/23/17 05:26 VBG O2 Sat (Calc) 82.7 % (40-65) H 01/23/17 05:26 VBG Base Excess -2.8 mmol/L (0.0-2.0) L 01/23/17 05:26 VBG Potassium 3.3 mmol/L (3.6-5.2) L 01/23/17 05:26 Sodium 137.0 mmol/L (132-148) 01/23/17 05:26 Chloride 106.0 mmol/L (98-107) 01/23/17 05:26 Glucose 128 mg/dl (65-105) H 01/23/17 05:26 Lactate 1.4 mmol/L (0.7-2.1) 01/23/17 05:26 FiO2 21.0 % 01/23/17 05:26 Sodium 138 mmol/L (132-148) 01/25/17 06:00 Potassium 3.7 mmol/L (3.6-5.0) 01/25/17 06:00 Chloride 108 mmol/L (98-107) H 01/25/17 06:00 Carbon Dioxide 23 mmol/L (21-33) 01/25/17 06:00 Anion Gap 11 (10-20) 01/25/17 06:00 BUN 19 mg/dL (7-21) 01/25/17 06:00 Creatinine 0.7 mg/dL (0.7-1.2) 01/25/17 06:00 Est GFR ( Amer) > 60 01/25/17 06:00 Est GFR (Non-Af Amer) > 60 01/25/17 06:00 POC Glucose (mg/dL) 284 mg/dL (65-110) H 01/27/17 11:30 Random Glucose 88 mg/dL (70-110) 01/25/17 06:00 Calcium 8.4 mg/dL (8.4-10.5) 01/25/17 06:00 Magnesium 1.8 mg/dL (1.7-2.2) 01/25/17 06:00 Total Bilirubin 0.8 mg/dL (0.2-1.3) 01/25/17 06:00 AST 85 U/L (14-36) H 01/25/17 06:00 ALT 72 U/L (7-56) H 01/25/17 06:00 Alkaline Phosphatase 108 U/L (38-126) 01/25/17 06:00 Lactate Dehydrogenase 515 U/L (333-699) 01/22/17 07:35 Total Creatine Kinase 109 U/L (35-230) 01/22/17 07:35 Troponin I 0.09 ng/mL 01/23/17 18:15 C-React Prot High Sens > 15.00 mg/L (1.00-3.00) H 01/27/17 07:10 Total Protein 5.7 g/dL (5.8-8.3) L 01/25/17 06:00 Albumin 3.0 g/dL (3.0-4.8) 01/25/17 06:00 Globulin 2.7 gm/dL 01/25/17 06:00 Albumin/Globulin Ratio 1.1 (1.1-1.8) 01/25/17 06:00 Lipase 162 U/L (23-300) 01/22/17 07:35 Procalcitonin 8.06 NG/ML (0.19-0.49) H 01/22/17 09:52 Venous Blood Potassium 3.3 mmol/L (3.6-5.2) L 01/23/17 05:26 Urine Color Yellow (YELLOW) 01/22/17 08:30 Urine Appearance Clear (CLEAR) 01/22/17 08:30 Urine pH 6.0 (4.7-8.0) 01/22/17 08:30 Ur Specific Emily 1.010 (1.005-1.035) 01/22/17 08:30 Urine Protein Negative mg/dL (<30 mg/dL) 01/22/17 08:30 Urine Glucose (UA) >=1000 mg/dL (NEGATIVE) 01/22/17 08:30 Urine Ketones Trace mg/dL (NEGATIVE) H 01/22/17 08:30 Urine Blood Negative (NEGATIVE) 01/22/17 08:30 Urine Nitrate Negative (NEGATIVE) 01/22/17 08:30 Urine Bilirubin Negative (NEGATIVE) 01/22/17 08:30 Urine Urobilinogen 0.2 E.U./dL (<1 E.U./dL) 01/22/17 08:30 Ur Leukocyte Esterase Negative Brenda/uL (NEGATIVE) 01/22/17 08:30 Hepatitis A IgM Ab Negative (NEGATIVE) 01/25/17 06:00 Hep Bs Antigen Negative (NEGATIVE) 01/25/17 06:00 Hep B Core IgM Ab Negative (NEGATIVE) 01/25/17 06:00 Hepatitis C Antibody Negative (NEGATIVE) 01/25/17 06:00 Influenza Typ A,B (EIA) Negative for flu a/b (NEGATIVE) 01/22/17 17:35 - Hospital Course Hospital Course: treated with IV antibiotics. wound debridement done by podiatry. sepsis resolved. MRI foot did not show osteomyelitis. Discharge Exam - Head Exam Head Exam: ATRAUMATIC, NORMAL INSPECTION, NORMOCEPHALIC - Eye Exam Eye Exam: Normal appearance Pupil Exam: NORMAL ACCOMODATION - ENT Exam ENT Exam: Mucous Membranes Dry - Neck Exam Neck exam: Normal Inspection - Respiratory Exam Respiratory Exam: NORMAL BREATHING PATTERN - Cardiovascular Exam Cardiovascular Exam: REGULAR RHYTHM, +S1, +S2 - GI/Abdominal Exam GI & Abdominal Exam: Normal Bowel Sounds, Unremarkable - Extremities Exam Extremities exam: normal inspection - Neurological Exam Neurological exam: Alert, CN II-XII Intact, Normal Gait, Oriented x3 - Psychiatric Exam Psychiatric exam: Normal Affect Discharge Plan - Discharge Medications Prescriptions: Ciprofloxacin [Cipro] 500 mg PO Q12 14 Days tab Clopidogrel [Plavix] 75 mg PO DAILY 30 Days tab metroNIDAZOLE [Flagyl] 500 mg PO Q8 10 Days tab Mupirocin 2% Ointment [Bactroban Ointment] 0 gm TOP DAILY 30 Days tube - Follow Up Plan Condition: STABLE Disposition: HOME/ ROUTINE Patient education suggested?: Yes Instructions: Cholesterol and Your Health (GEN), Diabetic Neuropathy (GEN), Leukocytosis (GEN), Hypertension (GEN), Leukocytosis (DC) Additional Instructions: PLEASE FOLLOW UP WITH DR DUNN IN ONE WEEK CALL FOR APPOINTMENT
== END 2017-01-27 15:45 | disposition home or self-care (01) | DRG 872 ==
LOC: ED 07:03 → ERH 09:20 → 5RSO 09:45 → OBSVTOIN 01-23 06:21
PROVIDERS: ADMIT Internal Medicine Nephrology; ATTEND Internal Medicine Nephrology
PROC: 0H9MXZZ Drainage of Right Foot Skin, External Approach (ICD-10-PCS; principal; 2017-01-23)
DX: A41.59 Other Gram-negative sepsis (principal); L02.611 Cutaneous abscess of right foot; L03.031 Cellulitis of right toe; E11.621 Type 2 diabetes mellitus with foot ulcer; L97.519 Non-pressure chronic ulcer of other part of right foot with unspecified severity; E11.42 Type 2 diabetes mellitus with diabetic polyneuropathy; R65.20 Severe sepsis without septic shock; E11.65 Type 2 diabetes mellitus with hyperglycemia; I10 Essential (primary) hypertension; D64.9 Anemia, unspecified; R10.9 Unspecified abdominal pain; E78.00 Pure hypercholesterolemia, unspecified; E86.1 Hypovolemia; E87.6 Hypokalemia; I27.20 Pulmonary hypertension, unspecified; E66.9 Obesity, unspecified; Z68.35 Body mass index [BMI] 35.0-35.9, adult; Z79.4 Long term (current) use of insulin; Z87.891 Personal history of nicotine dependence

== ENCOUNTER 2017-02-06 06:04 | Day surgery (SDC) | payer BC ==
[2017-01-31 12:33] VITALS: BMI 31.7
[2017-02-06] MEDS ORDERED: Midazolam 2 MG/2 ML VIAL ONE ×2 (06:54→08:14)
[2017-02-06] MEDS ORDERED: Phenylephrine 10 mg/ml Inj ONE (06:54)
[2017-02-06] MEDS ORDERED: Iodixanol 320 MG/ML 100 ML BOTTLE IV ONE (06:55)
[2017-02-06] MEDS ORDERED: Iodixanol 320 MG/ML 200 ML BOTTLE IV ONE (06:55)
[2017-02-06] MEDS ORDERED: Iohexol 350mgl/ml 50 ML ONE (06:55)
[2017-02-06] MEDS ORDERED: Nitroglycerin 50mg in D5W 0 MG/0 ML BOTTLE IV ONE (06:55)
[2017-02-06 06:56] LABS: INR 1.15 (0.93-1.08); PARTIAL THROMBOPLASTIN TIME 29.8 Seconds (25.1-36.5)
[2017-02-06] MEDS ORDERED: Lidocaine 2% Inj (20ml) ONE (06:56)
[2017-02-06 07:00] LABS: BASO # 0.03 K/mm3 (0.0-2.0); BASO % 0.3 % (0.0-3.0); EOS # 0.2 (0.0-0.7); EOS % 2.2 % (1.5-5.0); GRAN # 5.53 (1.4-6.5); GRAN % 62.2 % (50.0-68.0); HEMATOCRIT 37.3 % (36.0-48.0); LYMPH # 2.5 (1.2-3.4); LYMPH % 28.4 % (22.0-35.0); MEAN CELL VOLUME 88.2 fl (80.0-105.0); MEAN CORPUSCULAR HEMOGLOBIN 29.6 pg (25.0-35.0); MEAN CORPUSCULAR HGB CONC 33.5 g/dl (31.0-37.0); MEAN PLATELET VOLUME 9.7 fl (7.0-11.0); MONO # 0.6 (0.1-0.6); MONO % 6.9 % (1.0-6.0); RED CELL DISTRIBUTION WIDTH 13.2 % (11.5-14.5); WHITE BLOOD COUNT 8.9 10^3/ul (4.5-11.0)
[2017-02-06] MEDS ORDERED: Famotidine 20mg/50ml 20 MG/50 ML BAG IVPB ONE (07:03)
[2017-02-06] MEDS ORDERED: DiphenhydrAMINE 50 mg/ml Inj ONE (07:03)
[2017-02-06 07:08] LABS: BLOOD UREA NITROGEN 22 mg/dL (7-21); CALCIUM 9.9 mg/dL (8.4-10.5); CARBON DIOXIDE 24 mmol/L (21-33); CHLORIDE 103 mmol/L (98-107); CHOLESTEROL 116 mg/dL (130-200); GFR AFRICAN-AMERICAN > 60; GLUCOSE,RANDOM 127 mg/dL (70-110); SODIUM 140 mmol/L (132-148)
[2017-02-06 07:58] VITALS: RESP 18
[2017-02-06] MEDS ORDERED: Sodium Chloride 0.9% 1,000 ML IV SCH (09:00)
[2017-02-06 09:03] VITALS: TEMP 98.7
--- NOTE | 2017-02-06 12:04 | CARDCATH ---
PROCEDURE DATE: 02/06/2017 HISTORY: The patient is a 61-year-old woman who presented with chest pain. She has multiple cardiac risk factors including hypertension, diabetes mellitus, hypercholesterolemia. She had a remote history of coronary artery disease in the past. Because of her high pretest probability for CAD, cardiac catheterization was recommended. PROCEDURE: Left heart catheterization with coronary angiography and left ventriculogram. PERFORMING PHYSICIAN: Jose Barry MD PROCEDURE: The right femoral artery was cannulated with a 6-Uzbek sheath. There were no complications. FINDINGS: Findings on catheterization revealed a left ventricle that contracted normally. Estimated ejection fraction of 60%. Supraaortic valvular injection revealed trace aortic insufficiency. Her coronary anatomy revealed a right dominant circulation. The RCA was within normal limits. The left main artery was unremarkable. The LAD revealed intimal irregularities with an eccentric 30-40% eccentric lesion in the midportion. The diagonal vessels were free of significant disease. The circumflex artery and obtuse marginal branches were free of significant disease. Angio-Seal was used to close the femoral artery site. The patient tolerated the procedure well. SUMMARY: In summary, the procedure revealed normal LV function. Noncritical 30-40% eccentric lesion in the mid LAD. No other coronary lesions were noted. Given these findings, the patient's treatment should be a daily aspirin as well as a strict cardiac risk reduction program, which needs to include weight loss as well as statin therapy. Jose Barry MD
[2017-02-06 15:28] VITALS: O2SAT 92
[2017-02-06 15:29] VITALS: PULSE 74
[2017-02-06 15:30] VITALS: BP 119/73
== END 2017-02-06 15:30 | disposition home or self-care (01) ==
LOC: CATH 06:04
PROVIDERS: ATTEND Internal Medicine Cardiovascular Disease
DX: R07.9 Chest pain, unspecified (principal); I25.10 Atherosclerotic heart disease of native coronary artery without angina pectoris; I10 Essential (primary) hypertension; E78.00 Pure hypercholesterolemia, unspecified; E11.9 Type 2 diabetes mellitus without complications
CPT/HCPCS: 36415; 80048; 80061; 82948; 85025; 85610; 85730; 86850; 86900; 93458; 99152; C1760; C1769; C2629; J1200; J1644; J1720; J2250; J3010; J7030; J7040; Q9967

== ENCOUNTER 2017-03-28 06:08 | Day surgery (SDC) | payer BC ==
[2017-03-21 13:33] VITALS: BMI 31.3
--- NOTE | 2017-03-28 07:11 | CP.SDSHP ---
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 Previous Surgical History: cholecystectomy - Allergies Allergies: Allergies shellfish derived Adverse Reaction (Verified 01/31/17 12:33) RASH - Physical Exam General Appearance: AAOx3, NAD, appears pleasant, conversational, well nourished Vital Signs: Vital Signs 03/28/17 06:20 Temperature 98.2 F Pulse Rate 82 Respiratory 18 Rate Blood Pressure 148/104 H O2 Sat by Pulse 97 Oximetry Mental Status: Alert & Oriented x3 Neuro: WNL - {Optional Preform as Required} Integument: Other (ulceration of plantar-medial aspect of right hallux IPJ) Ortho: Other (tenderness to medial aspect of 1st metatatsal, limited ROM of 1st MTPJ all of right) - Impression Impression: Pt seen and evaluated in same day surgery. Consent and preop testing in the chart, NPO status confirmed, all questions and concerns addressed with patients, no guarantees given nor implied. Pt is ready and agreeable for surgery with Dr. Gutierrez today Short Stay Discharge - Short Stay Discharge Admitting Diagnosis/Reason for Visit: FOOT BUNION M20.11/DIFFICULTY W/ AMBU P26.2 Disposition: HOME/ ROUTINE Referrals: Derek Holliday MD [Primary Care Provider] - Charlie Gutierrez DPM [Staff Provider] - Additional Instructions (Diet, Activity): Please wear offloading forefoot wedge shoe to right foot Ice and elevate at home Please keep dressing clean, dry, and intact You have sutures which will be removed in office in approximately 2 weeks Monitor for any signs of infection Please follow up with Dr. Gutierrez in the office this week Take prescriptions as directed Progress Note/Discharge Note with Instructions: Patient seen and evaluated in PACU patient tolerated procedure and anesthesia well VSS, neurovascular status intact to right foot Patient stable for discharge home when recovery criteria are met <Charlie Gutierrez - Last Filed: 03/28/17 09:45> Same Day Surgery H & P - Allergies Allergies: Allergies shellfish derived Adverse Reaction (Verified 01/31/17 12:33) RASH - Physical Exam Vital Signs: Vital Signs 03/28/17 06:20 Temperature 98.2 F Pulse Rate 82 Respiratory 18 Rate Blood Pressure 148/104 H O2 Sat by Pulse 97 Oximetry Attending/Attestation - Attestation I have personally seen and examined this patient.: Yes I have fully participated in the care of the patient.: Yes I have reviewed all pertinent clinical information: Yes
[2017-03-28] MEDS ORDERED: Midazolam 2 MG/2 ML VIAL ONE (07:39)
[2017-03-28] MEDS ORDERED: Propofol 10 mg/ml Inj (20 ML) ONE ×2 (07:41→07:55)
[2017-03-28] MEDS ORDERED: Lidocaine 1% Inj (20ml) ONE (07:42)
[2017-03-28] MEDS ORDERED: Bupivacaine 0.5% Inj(30mL) ONE (07:42)
[2017-03-28] MEDS ORDERED: Morphine 2 mg/ml ISec IVP PRN (07:49)
[2017-03-28] MEDS ORDERED: Lactated Ringer's 1,000 ML IV SCH (08:00)
[2017-03-28] MEDS ORDERED: Oxycodone/Acetaminophen 5/325 mg Tab PO PRN ×2 (09:24)
--- NOTE | 2017-03-28 09:35 | PCM.SURG1 ---
<Mirtha Christianson - Last Filed: 03/28/17 09:32> Surgeon's Initial Post Op Note - Surgeon's Notes Surgeon: Dr. Gutierrez [place] Room Operator: Dr. Sofia Christianson, PGY-2 Type of Anesthesia: MAC, IV Sedation Anesthesia Administered By: Dr. Mo Pre-Operative Diagnosis: painful hallux abductovalgus/rigidus deformity 1st MTPJ and exostosis of hallux interphalangeal joint all of right foot Operative Findings: see operative report Post-Operative Diagnosis: same Operation Performed: youssef bunionectomy of 1st proximal phalanx right foot with resection of exostos and excision or medial eminence 1st metatarsal head with amniox graft all right foot Specimen/Specimens Removed: bone and soft tissue right foot Estimated Blood Loss: EBL {In ML}: 3 Blood Products Given: N/A Drains Used: No Drains Post-Op Condition: Good Date of Surgery/Procedure: 03/28/17 Time of Surgery/Procedure: 07:45 <Charlie Gutierrez - Last Filed: 03/28/17 09:45> Attending/Attestation - Attestation I have personally seen and examined this patient.: Yes I have fully participated in the care of the patient.: Yes I have reviewed all pertinent clinical information: Yes
[2017-03-28 10:35] VITALS: RESP 18; TEMP 97.6; O2SAT 97
[2017-03-28 10:49] VITALS: BP 104/60; PULSE 71
--- NOTE | 2017-03-28 11:06 | RAD ---
PROCEDURE: Right Foot Radiographs. HISTORY: s/p right foot surgery COMPARISON: None. FINDINGS: BONES: There has been osteotomy at the 1st MTP joint. A longitudinal pin is in place. There is anatomic alignment JOINTS: Normal. SOFT TISSUES: Normal. OTHER FINDINGS: None. IMPRESSION: There has been osteotomy at the 1st MTP joint. A longitudinal pin is in place. There is anatomic alignment
--- NOTE | 2017-03-31 01:56 | OP ---
PROCEDURE DATE: 03/28/2017 PREOPERATIVE DIAGNOSIS: Hallux limitus of first metatarsophalangeal joint. POSTOPERATIVE DIAGNOSIS: Hallux limitus of first metatarsophalangeal joint. PROCEDURES: 1. Osteotomy of first proximal phalanx, right foot. 2. Exostectomy of medial eminence of first metatarsal, right foot. 3. Application of graft to first metatarsophalangeal joint capsule. SURGEON: Charlie Gutierrez DPM GUN SYNCHRONIZER: Mirtha Christianson DPM TYPE OF ANESTHESIA: MAC IV sedation with local injection. ANESTHESIA ADMINISTERED BY: Dr. Mo. INDICATIONS: The patient is a 61-year-old female with the above-mentioned diagnoses. The patient has been treated by Dr. Gutierrez in the wound care center for the past several months in duration. Of note, the patient has had an ulceration to the plantar aspect of her right hallux interphalangeal joint which has been chronic in nature. The patient consented to careful explanation of all risks, benefits, complications and alternatives for surgical procedure. No guarantees were given nor employed. N.p.o. status was confirmed prior to taking the patient to the operating room. PREPARATION: The patient was brought to the operating room and placed in the operating room table in a supine position. A well-padded pneumatic ankle tourniquet was placed in the patient's right ankle in a supramalleolar position. After induction of IV sedation, the patient received a total of 20 mL with 1:1 mixture of 0.5% Marcaine plain and 1% lidocaine plain. No local block fashioned to the right foot. Once local anesthesia was achieved, the right foot was then prepped and draped in the usual sterile manner. Esmarch was utilized to exsanguinate the patient's right foot and pneumatic ankle tourniquet was then inflated to 250 mmHg and the procedure began. DESCRIPTION OF PROCEDURE: Osteotomy of first proximal phalanx, right foot. Attention was then directed to the dorsal aspect of the first metatarsal head of the right foot when approximately a 6 cm linear longitudinal incision was made medial and parallel to the tendon of the extensor hallucis with contour of the deformity. The incision was deepened to the subcutaneous tissue using sharp and blunt dissection. Care was taken to identify and retract all vital neurovascular structures. All bleeders were cauterized and ligated as necessary. At this time, a linear capsulotomy was performed over the dorsal aspect of the first metatarsal joint extending distally over the hallux interphalangeal joint. Periosteal and capsular structures were then carefully dissected free of other osseous attachments and retracted medially and laterally thus exposing the head of the first metatarsal and the base of the proximal phalanx into the operative site. Next, utilizing the oscillating bone saw, the base of the proximal phalanx was resected and passed from the operative field. A reciprocating rasp was then used to smooth down any roughened edges of the remaining proximal aspect of the proximal phalanx. At this time using the sagittal saw, the dorsal and medial prominences were resected and passed from the operative field. It should be noted that upon examination of the joint intraoperatively, there appeared to be significant bony exostosis and destruction of the joint. All roughened edges were then smooth down with a reciprocating rasp again. Correction of the deformity was assessed and appeared to be excellent at this time. Utilizing a K-wire tow bar driver, a 0.45 inch K-wire was then driven from the distal aspect of the hallux, was directed proximally onto the first metatarsal head. Correction at this time of the deformity appeared to be excellent and the toe appeared to be in a more rectus position. The wound was then flushed with copious amounts of sterile normal saline solution. The periosteal and capsular structures were then re-approximated and coapted using 3-0 Vicryl. Redundant capsular tissues were resected as necessary. Subcuticular tissues were then re-approximated and coapted using 3-0 Vicryl and the skin edges were re-approximated and coapted using 4-0 nylon suture. POSTOPERATIVE CONDITION: The patient tolerated the anesthesia and procedure well and was escorted to the recovery room with vital signs stable and neurovascular status intact to the right foot. The patient will be partial weightbearing in a forefoot offloading shoe. She will follow up with Dr. Gutierrez within 1 week. Mirtha Christianson DPM [place]
== END 2017-03-28 11:50 | disposition home or self-care (01) ==
LOC: SDS 06:08
PROVIDERS: ATTEND Podiatrist
DX: M20.11 Hallux valgus (acquired), right foot (principal); M20.5X1 Other deformities of toe(s) (acquired), right foot; M89.9 Disorder of bone, unspecified; I10 Essential (primary) hypertension; E11.9 Type 2 diabetes mellitus without complications; Z90.49 Acquired absence of other specified parts of digestive tract
CPT/HCPCS: 28124; 28292; 73630; 88304; 88311; J0690; J2001; J2250; J2270; J2704; J3010; J7120

== ENCOUNTER 2018-08-08 15:52 | Outpatient (CLI) | payer BC | END 2018-08-08 15:53 | disposition home or self-care (01) | LOC: RAD 15:52 ==

== ENCOUNTER 2018-09-03 08:29 | Day surgery (SDC) | payer BC ==
[2018-09-03 08:59] VITALS: BMI 31.3
[2018-09-03] MEDS ORDERED: Sodium Chloride 0.9% 1,000 ML IV SCH (09:30)
[2018-09-03] MEDS ORDERED: Propofol 10 mg/ml Inj (20 ML) ONE (10:06)
[2018-09-03] MEDS ORDERED: Midazolam 2 MG/2 ML VIAL ONE (10:44)
[2018-09-03] MEDS ORDERED: ePHEDrine 50 mg/ml Inj ONE (11:23)
[2018-09-03] MEDS ORDERED: Phenylephrine 10 mg/ml Inj ONE (11:23)
[2018-09-03 15:45] VITALS: BP 111/75; PULSE 67; RESP 16; TEMP 98; O2SAT 100
== END 2018-09-03 12:51 | disposition home or self-care (01) ==
LOC: ENDO 08:29
PROVIDERS: ATTEND Internal Medicine Gastroenterology
DX: K22.10 Ulcer of esophagus without bleeding (principal); K29.50 Unspecified chronic gastritis without bleeding; K29.80 Duodenitis without bleeding; K31.9 Disease of stomach and duodenum, unspecified; K57.30 Diverticulosis of large intestine without perforation or abscess without bleeding; K63.5 Polyp of colon; E11.9 Type 2 diabetes mellitus without complications; I10 Essential (primary) hypertension; K64.8 Other hemorrhoids
CPT/HCPCS: 43239; 45380; 82948; 88305; 88312; 88342; J2001; J2250; J2370; J2704; J7030 ×2; J7040